=== PATIENT | male | born 1965 | race Caucasian/White ===

== ENCOUNTER 2016-10-22 14:03 | Inpatient (IN) | payer OTHER ==
[~2016-10-22] VITALS: Ht 180.3 cm; Wt 104.8 kg
[~2016-10-22 14:03] MED LIST: AMBI10TA OR; FOLI1TAB OR; LISI5TAB OR; NICO21DI4 TD; OXAZ30CA OR; PAXI40TA OR; THERGRAN; THIA100T OR; TRAZ50TA OR; XANA0.5T OR; ZOLO50TA OR
[2016-10-22] MEDS ORDERED: AMBI10TA PO (14:16)
[2016-10-22] MEDS ORDERED: PRO AIR (14:28)
[2016-10-22] MEDS ORDERED: OLME20TA2 PO (14:28)
[2016-10-22 15:09] LABS: MEAN CORPUSCULAR HGB CONC 33.8 g/dl (32.0-36.5); MEAN CORPUSCULAR VOLUME 100.7 fl (80.0-96.0); RED CELL DISTRIBUTION WIDTH 13.9 % (11.5-14.5); WHITE BLOOD COUNT 8.8 K/mm3 (4.0-10.0)
[2016-10-22 15:29] LABS: METHADONE URINE NEGATIVE (NEGATIVE)
[2016-10-22 15:42] LABS: ALBUMIN 3.4 GM/DL (3.2-5.2); ALBUMIN/GLOBULIN RATIO 0.94 (1.00-1.93); ALKALINE PHOSPHATASE 135 U/L (45-117); ALT/SGPT 144 U/L (12-78); ANION GAP 12 MEQ/L (8-16); AST/SGOT 205 U/L (15-37); BILIRUBIN,DIRECT 0.2 MG/DL (0.0-0.2); BILIRUBIN,TOTAL 0.5 MG/DL (0.2-1.0); BLOOD UREA NITROGEN 6 MG/DL (7-18); CALCIUM LEVEL 8.7 MG/DL (8.5-10.1); CARBON DIOXIDE LEVEL 24 MEQ/L (21-32); CHLORIDE LEVEL 102 MEQ/L (98-107); CREATININE FOR GFR 0.91 MG/DL (0.70-1.30); GLOMERULAR FILTRATION RATE > 60.0 (>56); GLUCOSE, FASTING 128 MG/DL (70-105); POTASSIUM SERUM 3.6 MEQ/L (3.5-5.1); SODIUM LEVEL 138 MEQ/L (136-145)
[2016-10-22] MEDS ORDERED: ALBU17IN INH (17:23)
[2016-10-22 18:10] VITALS: BP 138/84
[2016-10-22] MEDS ORDERED: MOM 30ML SUSPENSION UDC PO PRN (19:15)
[2016-10-22] MEDS ORDERED: MAALOX 30 ML SUSP *UDC PO PRN (19:15)
[2016-10-22 21:00] VITALS: BP 130/82
[2016-10-22] MEDS: THIAMINE 100 MG TAB PO SCH (23:10)
[2016-10-22] MEDS: zolPIDEM TARTRATE 10MG TAB PO SCH (23:10)
[2016-10-23 07:17] VITALS: BP 156/96
[2016-10-23 09:34] VITALS: BP 142/95
[2016-10-23] MEDS: OLMESARTAN MEDOXOMIL 20 MG TAB (BENICAR) PO SCH (09:34)
[2016-10-23] MEDS: MULTIVITAMINS/MINERALS THERAP 1 TAB PO SCH (09:34)
[2016-10-23] MEDS: THIAMINE 100 MG TAB PO SCH ×2 (09:34→22:17)
[2016-10-23] MEDS: FOLIC ACID 1 MG TAB PO SCH (09:34)
[2016-10-23] MEDS: NICOTINE 21MG/24HR 1 EA TRANSDERMAL TD SCH (09:35)
--- NOTE | 2016-10-23 11:08 | HPEPDOC ---
[facility] History & Physical History and Physical DATE OF ADMISSION: Oct 22, 2016 at 16:45 CHIEF COMPLAINT: "I've been drinking more for the past month and was having thoughts about suicide." HISTORY OF THE PRESENT ILLNESS: Patient is a 51-year-old male, who states he presented to the emergency room after consuming alcohol and experiencing suicidal ideation with a plan to drive vehicle into a truck or shoot self. Patient indicates he did not possess intent to harm self because he doesn't want to hurt his family. Patient has had 2 prior psychiatric hospitalizations, last admission occurred in 2010 at which time patient was also treated for alcohol abuse, depression, and suicidal ideation. Patient states he was sober for a year, then gradually began drinking again after daughter left for college , notes he has been drinking fairly regularly for the past year, adds for the past month he has been consuming alcohol excessively with increased use over the past week. Patient indicates he has been experiencing the following stressors: Recently receiving second DUI, has been suspended from his job without pay, financial strain, fear of losing house, car, and other possessions. Patient notes over the past week he began experiencing an increase in the following symptoms: Suicidal ideation, depression, anxiety, alcohol abuse , erratic appetite, helplessness and hopelessness, decreased concentration, erratic sleep. Patient rates current anxiety level of 7/10, depression 7/10, denies current suicidal or homicidal ideation, denies audiovisual hallucinations , denies urge to engage in self-injurious behavior. Patient denies history of attempting suicide and notes, "my thoughts were scaring me because I don't want to leave my family." Patient denies history of discomfort in social settings, denies panic attacks but endorses periods of anxiety with racing thoughts, denies impulse control or compulsive behavior challenges, denies history of agitation or unsanctioned aggression. Patient endorses having weapons in the home including rifles and shotguns. Patient denies symptoms of reexperiencing and avoidance, and endorses hypervigilance. Patient denies history of hypomania or teresa symptoms, described appetite as reduced but states he is gained weight over the course past year. Patient reports history of sleep challenges including both latency and maintenance, indicates he sleeps approximately 4-5 hours per night and has been prescribed Ambien for over a year by an outpatient provider which she takes nightly. I stop completed which indicated patient should have a 2 week supply of Ambien left When blog writer inquires, patient indicates he has been taking more than prescribed and combining Ambien with alcohol. Patient denies symptoms of craving or withdrawal. Patient informs blog writer that he has a court date today related to his second DWI, states he has contacted his attorney law clerk to let the court know he is in the hospital. 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 PSYCHIATRIC REVIEW OF SYSTEMS: Affective: Cooperative, generally pleasant, anxious related to court, potential loss of employment, financial strain Anxiety: Endorses Trauma: Denies Psychosis: Denies Personally: Is engageable, appears generally forthright, cooperative PAST PSYCHIATRIC HISTORY: Prior Psychiatric Disorder: Depression, anxiety, alcohol abuse Outpatient Treatment: [facility] 2010 Suicidal/Self injurious: History of ideation, denies history of suicide attempt , denies SIB Psychotropic Medication History: Serax, trazodone, Vistaril, Librium, Ativan, Ambien, Zoloft, Paxil ALLERGIES: Please see below. 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 Significant other currently resides with patient Economic: Reports notable financial strain related to being suspended without pay from air intelligence officer job Supports: Feels he has adequate support system Abuse/trauma: Denies SUBSTANCE ABUSE HISTORY: Smokes one pack of cigarettes per day. Patient states he has been consuming 1/2 gallon of vodka per day for past 2 weeks, before that he was consuming 1/2 gallon per week approximately the last year, notes he first began consuming alcohol age 18, last consuming 2 drinks yesterday morning. Patient indicates he attended [facility] in 2010, was sober for a year after treatment, then began consuming alcohol again at progressively increased rates. Patient reports history of marijuana and cocaine use recreationally, denies history of other substance use or abuse. PAST MEDICAL/SURGICAL HISTORY: Hypertension, asthma, hyperlipidemia, some hearing loss. Patient denies history of head injury or seizure. Labs on admission indicated elevated MCH, MCV, AST, ALT, glucose, and alkaline phosphatase, and low BUN and AGR. UDS at time of admission indicated ethyl alcohol elevated at 0.047 VITAL SIGNS: B/P 142/95, P 95, R 18, T 98.7. MENTAL STATUS EXAMINATION: General appearance: Patient is a 51-year-old male who is cooperative, engageable , makes fair eye contact, displays adequate personal hygiene, is dressed in hospital clothing, ambulates with steady gait, appears stated age. Speech: Of normal rate, rhythm, volume, coherent, spontaneous. Thought processes: Linear, logical, goal-directed. Thought content: Rational, logical. Abstract reasoning and computation: Requires further evaluation. Description of associations: Intact. Description of abnormal or psychotic thoughts: Patient denies suicidal or homicidal ideation, denies auditory or visual hallucinations, does not appear to be responding to internal stimuli, does not endorse bizarre or paranoid ideation, does not appear preoccupied with violence obsessions. Judgment: Poor. Insight: Poor, verbalizes need for treatment. Orientation: A and O 3. Recent and remote memory: Appears intact. Attention span and concentration: Within normal limits. Fund of knowledge: Adequate. Mood: "Okay, I'm worried about losing everything from drinking and driving like a dumb ass." Affect: Blunted, congruent with mood. DIAGNOSES: Major depressive disorder, recurrent, moderate, alcohol use disorder , polysubstance use disorder, adjustment disorder, rule out substance-induced mood disorder ASSESSMENT: Patient has been isolating to room, resting in bed, is engageable and cooperative. Patient states he has taken Zoloft in the past which he feels worsened his symptoms of depression, has also taken Paxil which he feels improved his mood and reduce symptoms of anxiety, is requesting medication restart. Patient is currently on CIWA protocol, denies symptoms of craving or withdrawal, and has been advised to alert nursing if he begins to experience symptoms of withdrawal. Patient is aware that once he is stabilized on CIWA protocol, Ambien taper will be initiated in preparation for patient to participate in substance abuse treatment. Patient denies current suicidal or homicidal ideation and verbalizes awareness of how to access supportive services on the unit if needed. Will monitor patient's response to medications, response to withdrawal protocol, and will monitor for medication side effects. Will also evaluate patient's safety, resolution of suicidal ideation, and discharge readiness. At time of discharge patient states he is considering participating in inpatient alcohol treatment, however, indicates he will go through his union at work for referral as they reportedly dictate which facility he may attend. Patient notes if he is unable to attend inpatient treatment he will return home where he lives with his significant other. Patient verbalizes awareness that he will need to participate in substance abuse treatment, understands that inpatient is being recommended, notes he has also participated in [facility] in the past and may prefer to return there for psychotherapy, medication management, and substance abuse treatment. PROBLEM LIST: Suicidal ideation Depression Anxiety Substance abuse Ineffective coping Poor impulse control Financial strain Work tension INITIAL TREATMENT PLAN: 1. Patient was admitted on a 9 2. Complete history was obtained. 3. With patients permission, family will be contacted and database will be expanded. 4. Patients medication regimen will be reviewed and changed accordingly. 5. Patient will be provided with protected environment. 6. Patient will be treated with individual, group, and milieu therapies. 7. Patient will receive supportive psych-education. 8. Discharge planning will commence immediately. 9. Outpatient follow-up treatment will be strongly recommended. 10. The initial treatment plan will focus initially on: * Depression. * Risk for suicide. * Substance abuse - [facility] protocol ESTIMATED LENGTH OF STAY: 5-7 DAYS. TIME SPENT COUNSELING AND COORDINATING INITIAL CARE: 50 minutes. Laboratory Data 24H Labs Laboratory Tests 2 10/22/16 14:54: Hepatitis A IgM Antibody NEGATIVE, Hepatitis B Core IgM Antibody NEGATIVE, Hepatitis B Surface Antigen NEGATIVE, Hepatitis C Antibody Index 0.2 10/22/16 15:01: Acetaminophen Level < 2.0L, Aspartate Amino Transf (AST/SGOT) 205H, Alanine Aminotransferase (ALT/SGPT) 144H, Alkaline Phosphatase 135H, Total Bilirubin 0.5 , Direct Bilirubin 0.2, Albumin 3.4, Albumin/Globulin Ratio 0.94L, Anion Gap 12 , Calcium Level 8.7, Ethyl Alcohol Level 0.047H, Glomerular Filtration Rate > 60.0, Salicylates Level 3.2L, Thyroid Stimulating Hormone (TSH) 2.860, Total Protein 7.0, Urine Amphetamines Screen NEGATIVE, Urine Benzodiazepines Screen NEGATIVE, Urine Opiates Screen NEGATIVE, Urine Barbiturates Screen NEGATIVE, Urine Cannabinoids Screen NEGATIVE, Urine Cocaine Metabolite Screen NEGATIVE, Urine Methadone Screen NEGATIVE, Urine Phencyclidine Screen NEGATIVE CBC/BMP Laboratory Tests 10/22/16 15:01 Red Blood Count 4.53, Mean Corpuscular Volume 100.7 H, Mean Corpuscular Hemoglobin 34.0 H, Mean Corpuscular Hemoglobin Concent 33.8, Red Cell Distribution Width 13.9 Medications Scheduled Olmesartan Medoxomil (Olmesartan Medoxomil) 20 Mg Tab, 20 MG PO DAILY, (Reported ) Zolpidem Tartrate (Ambien) 10 Mg Tab, 10 MG PO QHS, (Reported) PATIENT HAS BEEN ALL OUT OF THIS MEDICATION SINCE 10/16/16 Scheduled PRN Albuterol Sulfate (Ventolin Hfa) 200 Puff/8 Gm Aers, 2 PUFF INH Q4H PRN for SHORTNESS OF BREATH, (Reported) Allergies Coded Allergies: No Known Drug Allergy (Verified Allergy, Unknown, 10/07/12) Provider Note ADDENDUM TO THIS NOTE: This patient's medical need for admission to the hospital is approved by Dr Hudson, who is not assuming care of the patient during the hospital stay. The patient's initial evaluation, including the treatment plan and the patient's care in the hospital is assumed by Jocelynn Centeno NP. Jocelynn Centeno Oct 23, 2016 11:08 Cinthya Weir Oct 30, 2016 19:22
--- NOTE | 2016-10-23 11:42 | HPEPDOC ---
Medical History and Physical Date of Admission Oct 22, 2016 at 16:45 History and Physical PCP: Dr Childress ATTENDING: Dr. Sean Randolph HPI: 51yoM admitted to [facility] for Unspecified depressive disorder, being medically examined today. Patient states he is eating and drinking. He had some abdominal discomfort yesterday but today it is better. Last evening he had some shortness of breath, he uses albuterol. Today he reports no shortness of breath or wheezing. This morning he had some back pain however currently he states he does not have any back discomfort or flank pain. Denies any epigastric discomfort. Denies any fevers, chills, weakness, fatigue, POLK, CP, SOB, cough, palpitations, abdominal pain, N/V/D or changes in bowel or bladder habits. PMHx: Insomnia Hypertension Asthma Hyperlipidemia. Not on meds per Pt related to side effects. 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 Illicit Drugs: History of marijuana, cocaine rarely IV Drug Use: Denies Tattoos done unprofessionally: Denies FAMHX: Mother: , CAD Father: , Alzheimer's Siblings: 2 brothers, 2 sisters Alive, well Children: Alive, well Unexpected deaths due to medical reasons: None. ROS: As noted in HPI, otherwise 11pt ROS of systems reviewed and unremarkable. PE: GEN: 51 yoM, appears stated age. Well-nourished, well developed. No acute distress. Alert and oriented x 3. Pleasant, interactive. HEENT: Normocephalic, atraumatic. Pupils are equal, round, and reactive to light. Extraocular movements are intact. No nystagmus appreciated. Sclera are nonicteric. Conjunctiva without injection. Nose midline. Nasal turbinates without bogginess. EACs both patent BL. TMs both visualized and lund with good cone of light, no bulging or erythema. No facial asymmetry. Moist mucous membranes. Dentition fair. Pharynx pink and moist, no cobblestoning. Neck supple , trachea midline. No lymphadenopathy or thyromegaly appreciated. CHEST: Regular rate and rhythm, +S1, +S2 LUNGS: Clear to auscultation bilaterally. No wheezes, rales, or rhonchi. Breathing appears symmetric and easy. Patient is speaking in full sentences. No accessory muscle use. ABD: Protuberant, Round, soft, non-tender, no epigastric tenderness, non- distended. +Bowel sounds throughout. No rebound or guarding. No costovertebral angle tenderness. EXT: Pulses 2+ bilaterally dorsalis pedis and radial. No lower extremity edema appreciated. SKIN: [place], dry, warm. Capillary refill <2sec. No rashes. NEURO: Alert and oriented x 3. Cranial nerves III-XII are intact. No focal deficits appreciated. EKG: Pending. A&P: 51yoM admitted to [facility] for Unspecified depressive disorder 1. Psych. Plan per Psychiatry. Obtain baseline EKG to assure the safety of psychiatric medications as they can prolong the QT interval. 2. Nicotine dependence. Patch available. 3. Asthma. Continue albuterol 2 puffs every 4 hours as needed. 4. Follow up with PCP on discharge. 5. Substance use. Withdrawal per psychiatry. Continue with MVI, Thiamine, and Folic Acid supplementation. 6. Hypertension. Continue olmesartan 20 mg by mouth daily. Monitor blood pressure. 7. Elevated LFTs. Hepatitis profile pending. Recheck CMP today. Add amylase. Consider liver ultrasound pending results. Recheck labs in a.m. 8. Staff member Ed present throughout exam. Vital Signs Vital Signs Date Time Temp Pulse Resp B/P Pulse Ox O2 Delivery O2 Flow Rate FiO2 10/23/16 09:34 142/95 10/23/16 09:34 54 16 10/23/16 07:17 98.7 10/22/16 18:10 Room Air 10/22/16 17:35 95 Laboratory Data Labs 24H Laboratory Tests 2 10/22/16 14:54: Hepatitis A IgM Antibody NEGATIVE, Hepatitis B Core IgM Antibody NEGATIVE, Hepatitis B Surface Antigen NEGATIVE, Hepatitis C Antibody Index 0.2 10/22/16 15:01: Acetaminophen Level < 2.0L, Aspartate Amino Transf (AST/SGOT) 205H, Alanine Aminotransferase (ALT/SGPT) 144H, Alkaline Phosphatase 135H, Total Bilirubin 0.5 , Direct Bilirubin 0.2, Albumin 3.4, Albumin/Globulin Ratio 0.94L, Anion Gap 12 , Calcium Level 8.7, Ethyl Alcohol Level 0.047H, Glomerular Filtration Rate > 60.0, Salicylates Level 3.2L, Thyroid Stimulating Hormone (TSH) 2.860, Total Protein 7.0, Urine Amphetamines Screen NEGATIVE, Urine Benzodiazepines Screen NEGATIVE, Urine Opiates Screen NEGATIVE, Urine Barbiturates Screen NEGATIVE, Urine Cannabinoids Screen NEGATIVE, Urine Cocaine Metabolite Screen NEGATIVE, Urine Methadone Screen NEGATIVE, Urine Phencyclidine Screen NEGATIVE CBC/BMP Laboratory Tests 10/22/16 15:01 Red Blood Count 4.53, Mean Corpuscular Volume 100.7 H, Mean Corpuscular Hemoglobin 34.0 H, Mean Corpuscular Hemoglobin Concent 33.8, Red Cell Distribution Width 13.9 Home Medications Scheduled Olmesartan Medoxomil (Olmesartan Medoxomil) 20 Mg Tab 20 MG PO DAILY Zolpidem Tartrate (Ambien) 10 Mg Tab 10 MG PO QHS PATIENT HAS BEEN ALL OUT OF THIS MEDICATION SINCE 10/16/16 Scheduled PRN Albuterol Sulfate (Ventolin Hfa) 200 Puff/8 Gm Aers 2 PUFF INH Q4H PRN PRN SHORTNESS OF BREATH Allergies Coded Allergies: No Known Drug Allergy (Verified Allergy, Unknown, 10/07/12) Kalee Baker Oct 23, 2016 11:42
[2016-10-23 13:00] VITALS: BP 142/95
[2016-10-23 13:37] LABS: ALBUMIN 3.4 GM/DL (3.2-5.2); ALBUMIN/GLOBULIN RATIO 1.06 (1.00-1.93); ALKALINE PHOSPHATASE 136 U/L (45-117); ALT/SGPT 130 U/L (12-78); AMYLASE 41 U/L (25-115); ANION GAP 7 MEQ/L (8-16); AST/SGOT 164 U/L (15-37); BLOOD UREA NITROGEN 8 MG/DL (7-18); CARBON DIOXIDE LEVEL 30 MEQ/L (21-32); CHLORIDE LEVEL 103 MEQ/L (98-107); CREATININE FOR GFR 1.05 MG/DL (0.70-1.30); GLOMERULAR FILTRATION RATE > 60.0 (>56); GLUCOSE, FASTING 112 MG/DL (70-105); POTASSIUM SERUM 4.4 MEQ/L (3.5-5.1); SODIUM LEVEL 140 MEQ/L (136-145); TOTAL PROTEIN 6.6 GM/DL (6.4-8.2)
[2016-10-23] MEDS: LORazepam 2 MG TAB PO PRN ×2 (13:44→21:08)
[2016-10-23 14:00] VITALS: BP 139/87
[2016-10-23] MEDS ORDERED: CLOTRIMAZOLE 1% TOPICAL CREAM 30GM TOP SCH (17:00)
[2016-10-23] MEDS ORDERED: SODIUM CHLORIDE NASAL 0.65% SPRAY BTL (OCEAN) SCH (17:00)
--- NOTE | 2016-10-23 17:20 | ECGEPIP ---
Stationary ECG Study [facility] Test Date: 2016-10-23 Pat Name: MONICA LANDERS Department: Room: [place] [address] Gender: M Communications Representative: ANDRIA : 1965 Requested By: Kalee Baker Order Number: [id number] Reading MD: Sean Randolph Measurements Intervals [place] Rate: 91 P: 28 VT: 168 QRS: 29 QRSD: 93 T: 47 QT: 353 QTc: 436 Interpretive Statements SINUS RHYTHM WITH SINUS ARRHYTHMIA Comparison tracing not on file Electronically Signed On 10-23-2016 17:18:44 EDT by Sean Randolph
[2016-10-23 18:00] VITALS: BP 153/93
[2016-10-23 21:00] VITALS: BP 153/93
[2016-10-23] MEDS: zolPIDEM TARTRATE 10MG TAB PO SCH (22:17)
[2016-10-24] VITALS (7 sets, daily range): BP systolic 120–146; BP diastolic 82–102
[2016-10-24 06:39] LABS: MEAN CORPUSCULAR HGB CONC 32.4 g/dl (32.0-36.5); MEAN CORPUSCULAR VOLUME 101.8 fl (80.0-96.0); RED CELL DISTRIBUTION WIDTH 13.6 % (11.5-14.5); WHITE BLOOD COUNT 7.9 K/mm3 (4.0-10.0)
[2016-10-24 07:09] LABS: ALBUMIN 3.1 GM/DL (3.2-5.2); ALBUMIN/GLOBULIN RATIO 0.91 (1.00-1.93); ALKALINE PHOSPHATASE 130 U/L (45-117); ALT/SGPT 126 U/L (12-78); ANION GAP 5 MEQ/L (8-16); AST/SGOT 162 U/L (15-37); BILIRUBIN,TOTAL 1.2 MG/DL (0.2-1.0); BLOOD UREA NITROGEN 8 MG/DL (7-18); CALCIUM LEVEL 8.6 MG/DL (8.5-10.1); CARBON DIOXIDE LEVEL 32 MEQ/L (21-32); CHLORIDE LEVEL 104 MEQ/L (98-107); CREATININE FOR GFR 0.97 MG/DL (0.70-1.30); GLOMERULAR FILTRATION RATE > 60.0 (>56); GLUCOSE, FASTING 111 MG/DL (70-105); POTASSIUM SERUM 4.2 MEQ/L (3.5-5.1); SODIUM LEVEL 141 MEQ/L (136-145); TOTAL PROTEIN 6.5 GM/DL (6.4-8.2)
[2016-10-24] MEDS: MULTIVITAMINS/MINERALS THERAP 1 TAB PO SCH (08:41)
[2016-10-24] MEDS: FOLIC ACID 1 MG TAB PO SCH (08:41)
[2016-10-24] MEDS: OLMESARTAN MEDOXOMIL 20 MG TAB (BENICAR) PO SCH (08:42)
[2016-10-24] MEDS: NICOTINE 21MG/24HR 1 EA TRANSDERMAL TD SCH (08:42)
[2016-10-24] MEDS ORDERED: PARoxetine 12.5 MG **CR** TAB PO SCH (09:00)
[2016-10-24] MEDS: THIAMINE 100 MG TAB PO SCH ×2 (10:38→23:10)
[2016-10-24] MEDS: LORazepam 2 MG TAB PO PRN (11:25)
--- NOTE | 2016-10-24 17:12 | IPNPDOC ---
[facility] Progress Note Progress Note DATE OF SERVICE: 10/24/16 HISTORY: 51 year old male who was admitted to the [facility] because he presented to the Emergency Room stating he had suicidal ideation and felt very depressed. He states he has had a substance abuse history (alcohol) that has caused him several problems and tribulations. He got a DUI recently and for this reason he has suspended from his job and he will be going to court for this reason. He is afraid of not being able to pay his mortgage, his debt. He says that he was living with someone but that she also has an alcohol problem. He states his family is very supportive and that he hopes to overcome this situation, although he says there are days when he wakes up and he wishes he wouldn't or he wishes that he could keep on sleeping forever. VITAL SIGNS: See below. NEW TEST RESULTS: None. CURRENT MEDICATIONS: See below. MENTAL STATUS EXAMINATION: Patient is a 51-year old male, who is alert, cooperative with interview, with good eye contact, pleasant. Speech: Is normal. Language skills are fair. Thought processes including: Linear , coherent Thought content: Negative for homicidal ideation, delusional thoughts or altered perceptions. Positive for passive suicidal ideation. Abstract reasoning, and computation: Good. Description of associations: No loosening of associations. Description of abnormal or psychotic thoughts: Not present Judgment: Improving. Insight: Improving. Orientation: Oriented 3. Recent and remote memory: Fair. Attention span and concentration: Fair. Language: Normal. Fund of knowledge: Good. Mood: "I feel very anxious and depressed, and to tell you the truth, yes, many times I wake up wishing not to wake up". Affect: Sad, depressed. DIAGNOSES: 1. Major depressive disorder with suicidal ideation. 2. Rule out substance-induced mood disorder. 3. Alcohol abuse. ASSESSMENT: Patient is insightful about his situation and he is beginning to realize all the problems that he's gotten into because of his alcohol abuse. I have increased the dose of Paxil to 25 mg by mouth daily because he is very anxious and depressed. He needs a lot of support, psychotherapy and continued on medications, but he also needs his family support. He needs further treatment at the inpatient mental health unit MANAGEMENT PLAN: Continued hospitalization, psychotherapy, medications. TIME SPENT: 20 minutes. Vital Signs Vital Signs Date Time Temp Pulse Resp B/P Pulse Ox O2 Delivery O2 Flow Rate FiO2 10/24/16 14:00 98.8 72 18 120/88 10/22/16 18:10 Room Air 10/22/16 17:35 95 Laboratory Data 24H Labs Laboratory Tests 2 10/24/16 06:27: Blood Urea Nitrogen 8, Creatinine 0.97, Sodium Level 141, Potassium Level 4.2, Chloride Level 104, Carbon Dioxide Level 32, Calcium Level 8.6, Aspartate Amino Transf (AST/SGOT) 162H, Alanine Aminotransferase (ALT/SGPT) 126H, Alkaline Phosphatase 130H, Total Bilirubin 1.2H, Total Protein 6.5, Albumin 3.1L, Albumin /Globulin Ratio 0.91L, Anion Gap 5L, Glomerular Filtration Rate > 60.0 CBC/BMP Laboratory Tests 10/24/16 06:27 Calcium Level 8.6, Aspartate Amino Transf (AST/SGOT) 162 H, Alanine Aminotransferase (ALT/SGPT) 126 H, Alkaline Phosphatase 130 H, Total Bilirubin 1.2 H, Total Protein 6.5, Albumin 3.1 L, Red Blood Count 4.37, Mean Corpuscular Volume 101.8 H, Mean Corpuscular Hemoglobin 33.0, Mean Corpuscular Hemoglobin Concent 32.4, Red Cell Distribution Width 13.6 Current Medications Current Medications Al Hydrox/Mg Hydrox/Simethicone (Mylanta) 30 ml Q4HP PRN PO HEARTBURN/ INDIGESTION; Start 10/22/16 at 19:15; Stop 11/21/16 at 19:14 Albuterol Sulfate (Proventil, Ventolin Hfa) 2 puff Q4HP PRN INH SHORTNESS OF BREATH; Start 10/22/16 at 19:15; Stop 11/21/16 at 19:14 Clotrimazole (Lotrimin) apply to face daily as needed DAILYPRN TOP ; Start 10/23 at 17:00; Stop 10/23/16 at 17:02; Status DC Clotrimazole (Lotrimin) apply to face daily as needed DAILYPRN PRN TOP REDNESS/ IRRITATION; Start 10/23/16 at 17:00; Stop 11/22/16 at 16:59 Folic Acid (Folic Acid) 1 mg DAILY PO Last administered on 10/24/16t 08:41; Start 10/23/16 at 09:00; Stop 11/22/16 at 08:59 Home Med (Med Rec Complete!) ASDIRECTED XX ; Start 10/22/16 at 17:30; Stop at 17:30; Status DC Ibuprofen (Advil) 400 mg Q6HP PRN PO PAIN; Start 10/22/16 at 19:15; Stop at 19:14 Lorazepam (Ativan) 2 mg ASDIRECTED PRN PO SEE PROTOCOL Last administered on 11:25; Start 10/22/16 at 19:15; Stop 10/29/16 at 19:14 Magnesium Hydroxide (Milk Of Magnesia) 30 ml DAILYPRN PRN PO CONSTIPATION; Start 10/22/16 at 19:15; Stop 11/21/16 at 19:14 Multivitamins (Theragram-M) 1 tab DAILY PO Last administered on 10/24/16 08:41 ; Start 10/23/16 at 09:00; Stop 11/22/16 at 08:59 Nicotine (Nicoderm Cq 21mg) 1 patch DAILY TD Last administered on 10/24/16 08: 42; Start 10/23/16 at 09:00; Stop 11/22/16 at 08:59 Olmesartan (Benicar) 20 mg DAILY PO Last administered on 10/24/16 08:42; Start 10/23/16 at 09:00; Stop 11/22/16 at 08:59 Paroxetine HCl (PAXil CR) 12.5 mg QAM PO Last administered on 10/24/16 08:41; Start 10/24/16 at 09:00; Stop 11/23/16 at 08:59 Sodium Chloride ([place] Nasal [place]) 2 spray BIDP NA ; Start 10/23/16 at 17:00; Stop 10/23/16 at 17:02; Status DC Sodium Chloride ([place] Nasal [place]) 2 spray BIDP PRN NA NASAL CONGESTION; Start 10/23/16 at 17:00; Stop 11/22/16 at 16:59 Thiamine HCl (Thiamine HCl) 100 mg BID PO Last administered on 10/24/16 10:38 ; Start 10/22/16 at 21:00; Stop 10/25/16 at 09:01 Zolpidem Tartrate (Ambien) 10 mg QHS PO Last administered on 10/23/16t 22:17; Start 10/22/16 at 21:00; Stop 10/29/16 at 20:59 Allergies Coded Allergies: No Known Drug Allergy (Verified Allergy, Unknown, 10/07/12) SHEILA ROJO MD Oct 24, 2016 17:12
[2016-10-24] MEDS: IBUPROFEN 400 MG TAB PO PRN (20:22)
[2016-10-24] MEDS: zolPIDEM TARTRATE 10MG TAB PO SCH (23:10)
[2016-10-25] MEDS: SODIUM CHLORIDE NASAL 0.65% SPRAY BTL (OCEAN) PRN (04:06)
[2016-10-25] MEDS: IBUPROFEN 400 MG TAB PO PRN (04:07)
[2016-10-25] MEDS ORDERED: hydrOXYzine 25 MG TAB PO SCH (06:30)
[2016-10-25] MEDS ORDERED: cloNIDine 0.1 MG TAB PO ONE (06:30)
[2016-10-25] MEDS ORDERED: hydrOXYzine 25 MG TAB PO PRN (06:45)
[2016-10-25 06:46] VITALS: BP 150/110
[2016-10-25 08:40] VITALS: BP 129/69
[2016-10-25] MEDS: PARoxetine 25 MG CR TAB (PAXIL CR) PO SCH (08:40)
[2016-10-25] MEDS: MULTIVITAMINS/MINERALS THERAP 1 TAB PO SCH (08:40)
[2016-10-25] MEDS: THIAMINE 100 MG TAB PO SCH (08:41)
[2016-10-25] MEDS: OLMESARTAN MEDOXOMIL 20 MG TAB (BENICAR) PO SCH (08:41)
[2016-10-25] MEDS: NICOTINE 21MG/24HR 1 EA TRANSDERMAL TD SCH (08:42)
[2016-10-25] MEDS: FOLIC ACID 1 MG TAB PO SCH (08:43)
--- NOTE | 2016-10-25 09:19 | IPNPDOC ---
[facility] Progress Note Progress Note DATE OF SERVICE: 10/25/16 HISTORY: Evaluated 51 year old male with history of Major Depressive disorder, substance abuse ( alcohol), R/O substance induced mood disorder ho was admitted for having suicidal thoughts and being severely depressed. He states he is still feeling depressed and very anxious about his legal and financial situation , because he received a DUI recently, he has been suspended from work and he doesn't know if he is going to be fired. VITAL SIGNS: See below. NEW TEST RESULTS: none CURRENT MEDICATIONS: See below. MENTAL STATUS EXAMINATION: Patient is a 51-year old male, who is alert, cooperative, with good eye contact and good rapport. Speech: Is normal. Language skills are good Thought processes including: Linear, coherent. Thought content: negative for psychosis, but he has passive, not active suicidal thoughts. he doesn't have homicidal ideation. Abstract reasoning, and computation: Fair. Description of associations: No llosening of associations. Description of abnormal or psychotic thoughts: No psychotic thoughts are present. Judgment: Improving. Insight: Improving. Orientation: Oriented x 3. Recent and remote memory: Intact. Attention span and concentration: Good. Language: Normal. Fund of knowledge: Full. Mood: Depressed. Affect: sad, anxious DIAGNOSES: 1. Major Depressive disorder with SI. 2. Substance abuse ( alcohol). 3. Rule out substance induced mood disorder. ASSESSMENT:Patient is very anxious and depressed about his current situation. This morning he was reported to have high blood pressure, so, clonidine was prescribed, a one time dose of 0.1 mgs. and he received a dose of Ativan. Possibly his high blood pressure was secondary to his anxiety but it also could be related to the fact that he could still be going through withdrawals. will need to monitor closely. MANAGEMENT PLAN: continue current treatment, contact family and arrange outpatient follow up for depressive d/o and for alcohol abuse. TIME SPENT: 15 minutes. Vital Signs Vital Signs Date Time Temp Pulse Resp B/P Pulse Ox O2 Delivery O2 Flow Rate FiO2 10/25/16 08:41 129/69 10/25/16 08:40 110 18 10/25/16 06:46 99.0 10/22/16 18:10 Room Air 10/22/16 17:35 95 Current Medications Current Medications Al Hydrox/Mg Hydrox/Simethicone (Mylanta) 30 ml Q4HP PRN PO HEARTBURN/ INDIGESTION; Start 10/22/16 at 19:15; Stop 11/21/16 at 19:14 Albuterol Sulfate (Proventil, Ventolin Hfa) 2 puff Q4HP PRN INH SHORTNESS OF BREATH; Start 10/22/16 at 19:15; Stop 11/21/16 at 19:14 Clotrimazole (Lotrimin) apply to face daily as needed DAILYPRN TOP ; Start 10/23 at 17:00; Stop 10/23/16 at 17:02; Status DC Clotrimazole (Lotrimin) apply to face daily as needed DAILYPRN PRN TOP REDNESS/ IRRITATION; Start 10/23/16 at 17:00; Stop 11/22/16 at 16:59 Folic Acid (Folic Acid) 1 mg DAILY PO Last administered on 10/25/16 08:43; Start 10/23/16 at 09:00; Stop 11/22/16 at 08:59 Home Med (Med Rec Complete!) ASDIRECTED XX ; Start 10/22/16 at 17:30; Stop at 17:30; Status DC Hydroxyzine HCl (Atarax) 25 mg BIDP PO ; Start 10/25/16 at 06:30; Stop 10/25/16 at 06:40; Status DC Hydroxyzine HCl (Atarax) 25 mg BIDP PRN PO ANXIETY/AGITATION; Start 10/25/16 at 06:45; Stop 11/24/16 at 06:44 Ibuprofen (Advil) 400 mg Q6HP PRN PO PAIN Last administered on 10/25/16 04:07 ; Start 10/22/16 at 19:15; Stop 11/21/16 at 19:14 Lorazepam (Ativan) 2 mg ASDIRECTED PRN PO SEE PROTOCOL Last administered on 11:25; Start 10/22/16 at 19:15; Stop 10/24/16 at 16:14; Status DC Magnesium Hydroxide (Milk Of Magnesia) 30 ml DAILYPRN PRN PO CONSTIPATION; Start 10/22/16 at 19:15; Stop 11/21/16 at 19:14 Multivitamins (Theragram-M) 1 tab DAILY PO Last administered on 10/25/16 08:40 ; Start 10/23/16 at 09:00; Stop 11/22/16 at 08:59 Nicotine (Nicoderm Cq 21mg) 1 patch DAILY TD Last administered on 10/25/16 08: 42; Start 10/23/16 at 09:00; Stop 11/22/16 at 08:59 Olmesartan (Benicar) 20 mg DAILY PO Last administered on 10/25/16 08:41; Start 10/23/16 at 09:00; Stop 11/22/16 at 08:59 Paroxetine HCl (PAXil CR) 12.5 mg QAM PO Last administered on 10/24/16 08:41; Start 10/24/16 at 09:00; Stop 10/24/16 at 16:14; Status DC Paroxetine HCl (PAXil CR) 25 mg DAILY PO Last administered on 10/25/16 08:40; Start 10/25/16 at 09:00; Stop 11/24/16 at 08:59 Sodium Chloride ([place] Nasal [place]) 2 spray BIDP NA ; Start 10/23/16 at 17:00; Stop 10/23/16 at 17:02; Status DC Sodium Chloride ([place] Nasal [place]) 2 spray BIDP PRN NA NASAL CONGESTION Last administered on 10/25/16 04:06; Start 10/23/16 at 17:00; Stop 11/22/16 at 16:59 Thiamine HCl (Thiamine HCl) 100 mg BID PO Last administered on 10/25/16 08:41 ; Start 10/22/16 at 21:00; Stop 10/25/16 at 09:01; Status DC Zolpidem Tartrate (Ambien) 10 mg QHS PO Last administered on 10/24/16 23:10; Start 10/22/16 at 21:00; Stop 10/29/16 at 20:59 Allergies Coded Allergies: No Known Drug Allergy (Verified Allergy, Unknown, 10/07/12) SHEILA ROJO MD Oct 25, 2016 09:19
[2016-10-25] MEDS: ALBUTEROL 90 MCG/ACT 8GM HFA INHALER INH PRN (09:34)
[2016-10-25 11:42] VITALS: BP 136/86
[2016-10-25 11:59] VITALS: BP 129/69
[2016-10-25] MEDS: hydrOXYzine 25 MG TAB PO SCH ×2 (17:49→22:08)
[2016-10-25 18:00] VITALS: BP 119/76
[2016-10-25 21:00] VITALS: BP 126/80
[2016-10-25] MEDS: zolPIDEM TARTRATE 10MG TAB PO SCH (23:09)
[2016-10-26 06:26] VITALS: BP 146/108
--- NOTE | 2016-10-26 07:52 | REP ---
Clinical: Elevated liver function tests. Technique: Real time lund scale ultrasound examination using curved array transducer. Findings: The liver is enlarged measuring greater than 20 cm craniocaudal length and demonstrates diffuse fatty infiltration without focal hepatic lesion identified. Main portal vein is enlarged and measures 17 mm diameter. The gallbladder is normal and without gallstones, wall thickening, or pericholecystic fluid. No biliary ductal dilatation is appreciated and the common bile duct measures 3.8 mm diameter. Pancreas is incompletely evaluated due to interposed bowel gas and poor through transmission. The right kidney is normal in reniform shape without hydronephrosis and measures 10.2 x 6.4 x 4.8 cm. No ascites. Impression: Hepatomegaly and hepatosteatosis. Signed by Marcelo Chambers MD 10/26/2016 07:43 A
[2016-10-26] MEDS: NICOTINE 21MG/24HR 1 EA TRANSDERMAL TD SCH (08:08)
[2016-10-26] MEDS: MULTIVITAMINS/MINERALS THERAP 1 TAB PO SCH (08:08)
[2016-10-26] MEDS: hydrOXYzine 25 MG TAB PO SCH ×4 (08:08→21:50)
[2016-10-26] MEDS: PARoxetine 25 MG CR TAB (PAXIL CR) PO SCH (08:08)
[2016-10-26] MEDS: FOLIC ACID 1 MG TAB PO SCH (08:08)
[2016-10-26] MEDS: OLMESARTAN MEDOXOMIL 20 MG TAB (BENICAR) PO SCH (08:11)
[2016-10-26 09:47] LABS: ALBUMIN 3.1 GM/DL (3.2-5.2); ALBUMIN/GLOBULIN RATIO 0.94 (1.00-1.93); ALKALINE PHOSPHATASE 108 U/L (45-117); ALT/SGPT 124 U/L (12-78); ANION GAP 9 MEQ/L (8-16); AST/SGOT 124 U/L (15-37); BILIRUBIN,TOTAL 0.7 MG/DL (0.2-1.0); BLOOD UREA NITROGEN 10 MG/DL (7-18); CALCIUM LEVEL 8.5 MG/DL (8.5-10.1); CARBON DIOXIDE LEVEL 27 MEQ/L (21-32); CHLORIDE LEVEL 106 MEQ/L (98-107); CREATININE FOR GFR 1.08 MG/DL (0.70-1.30); GLOMERULAR FILTRATION RATE > 60.0 (>56); GLUCOSE, FASTING 135 MG/DL (70-105); POTASSIUM SERUM 4.1 MEQ/L (3.5-5.1); SODIUM LEVEL 142 MEQ/L (136-145); TOTAL PROTEIN 6.4 GM/DL (6.4-8.2)
[2016-10-26 11:28] VITALS: BP 141/88
[2016-10-26] MEDS: ALBUTEROL 90 MCG/ACT 8GM HFA INHALER INH PRN ×2 (17:01→21:51)
[2016-10-26] MEDS: SODIUM CHLORIDE NASAL 0.65% SPRAY BTL (OCEAN) PRN ×2 (17:02→21:52)
[2016-10-26 18:00] VITALS: BP 146/73
[2016-10-26] MEDS: IBUPROFEN 400 MG TAB PO PRN (19:36)
--- NOTE | 2016-10-26 19:52 | IPNPDOC ---
[facility] Progress Note Progress Note DATE OF SERVICE: 10/26/16 HISTORY: Patient is 51-year-old male who presented to the emergency room after consuming alcohol and experiencing suicidal ideation with plan to drive vehicle into a truck or shoot self. Patient indicates he found the weekend "frustrating , there is a lot of down time," notes unit population is "young and there is a lot of drama." Patient states those of the reasons he is been isolating to room , otherwise has been making attempts to attend unit programming. Patient relates current anxiety level of 7/10, depression 8/10, denies suicidal and homicidal ideations, denies audiovisual hallucinations, denies urge to engage in self-injurious behavior. Contrary to EMR, patient indicates he is not been sleeping well, reports improvement in energy level and concentration and focus, states appetite is stabilizing. Patient denies symptoms of craving or withdrawal , is aware he has PRN anxiolytic available to him, indicates some improvement since starting Paxil which was recently increased, denies medication side effects. Patient indicates he remains "worried about money, my job, and my life, " indicates he has not initiated contact with his contract attorney and does not know current status of DUI case. VITAL SIGNS: See below. NEW TEST RESULTS: Glucose elevated at 135, also elevated are AST, ALT, MCV, low are albumin and AGR PAST MEDICAL/SURGICAL HISTORY: Hypertension, asthma, hyperlipidemia, some hearing loss. Patient denies history of head injury or seizure. Labs on admission indicated elevated MCH, MCV, AST, ALT, glucose, and alkaline phosphatase, and low BUN and AGR. UDS at time of admission indicated ethyl alcohol elevated at 0.047 10/23/16 EKG SINUS RHYTHM WITH SINUS ARRHYTHMIA CURRENT MEDICATIONS: See below. MENTAL STATUS EXAMINATION: Patient is a 51-year old male, who is alert, cooperative, makes adequate eye contact, exhibits adequate personal hygiene, is dressed in hospital clothing, ambulates with steady gait, appears stated age Speech: Is normal, of normal rate, rhythm, volume, spontaneous, coherent Language skills are good Thought processes including: Linear, coherent. Thought content: Rational, logical Abstract reasoning, and computation: Appears within normal limits Description of associations: Intact Description of abnormal or psychotic thoughts: Patient denies suicidal or homicidal ideation, denies auditory or visual hallucinations, does not appear to be responding to internal stimuli, does not endorse bizarre or paranoid ideation, does not appear preoccupied with violence or obsessions Judgment: Limited Insight: Fair Orientation: Oriented x 3. Recent and remote memory: Intact. Attention span and concentration: Good. Language: Normal. Fund of knowledge: Adequate Mood: "I'm just worried about losing everything over this DWI." Patient appears anxious and depressed, no mood lability noted Affect: Constricted, tearful 1, congruent with mood DIAGNOSES: Major depressive disorder, recurrent moderate, alcohol use disorder, polysubstance use disorder, adjustment disorder, rule out substance-induced mood disorder ASSESSMENT: Patient appears to be adjusting to unit, remains isolative in room at times, but is more visible and has been participating in unit programming. Patient states she remains anxious and depressed regarding waiting to find out if he is going to have a job or if he will lose his home, car, and other resources. Patient has been placed on standing anxiolytic medication. Patient indicates current medication regimen is helpful and denies medication side effects, is aware that recommendation is being made for Ambien taper once patient is stabilized on antidepressant and sleep has improved. Patient denies suicidal and homicidal ideation and verbalizes awareness of how to access supportive services on the unit if needed. Will monitor patient's response to medications and for side effects, and will evaluate patient's safety, resolution of suicidal ideation, and discharge readiness. Patient indicates when prepared for discharge he would like to first go home, and then go to inpatient alcohol rehabilitation. 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 Patient states he is also agreeable to also following up with psychotherapy and medication management services. MANAGEMENT PLAN: Continue Paxil CR 25 mg po q am, hydroxyzine 25 mg QID, and Ambien 10 mg hs PRN for insomnia with plans to taper. Maintain safety precautions Patient to attend groups and participate in unit programming to develop coping strategies Engage patient in discharge planning process and arrange meeting with support system to ensure safe discharge planning when appropriate Patient to follow up with PCM upon discharge TIME SPENT: 35 minutes. Vital Signs Vital Signs Date Time Temp Pulse Resp B/P Pulse Ox O2 Delivery O2 Flow Rate FiO2 10/26/16 18:00 97.9 87 16 146/73 10/22/16 18:10 Room Air 10/22/16 17:35 95 Laboratory Data 24H Labs Laboratory Tests 2 10/26/16 08:45: Blood Urea Nitrogen 10, Creatinine 1.08, Sodium Level 142, Potassium Level 4.1, Chloride Level 106, Carbon Dioxide Level 27, Calcium Level 8.5, Aspartate Amino Transf (AST/SGOT) 124H, Alanine Aminotransferase (ALT/SGPT) 124H, Alkaline Phosphatase 108, Total Bilirubin 0.7, Total Protein 6.4, Albumin 3.1L, Albumin/ Globulin Ratio 0.94L, Anion Gap 9, Estimated Mean Plasma Glucose 111H, Glomerular Filtration Rate > 60.0, Hemoglobin A1c 5.5 CBC/BMP Laboratory Tests 10/26/16 08:45 Calcium Level 8.5, Aspartate Amino Transf (AST/SGOT) 124 H, Alanine Aminotransferase (ALT/SGPT) 124 H, Alkaline Phosphatase 108, Total Bilirubin 0.7 , Total Protein 6.4, Albumin 3.1 L Current Medications Current Medications Al Hydrox/Mg Hydrox/Simethicone (Mylanta) 30 ml Q4HP PRN PO HEARTBURN/ INDIGESTION; Start 10/22/16 at 19:15; Stop 11/21/16 at 19:14 Albuterol Sulfate (Proventil, Ventolin Hfa) 2 puff Q4HP PRN INH SHORTNESS OF BREATH Last administered on 10/26/16 17:01; Start 10/22/16 at 19:15; Stop 11/21 at 19:14 Clotrimazole (Lotrimin) apply to face daily as needed DAILYPRN TOP ; Start 10/23 at 17:00; Stop 10/23/16 at 17:02; Status DC Clotrimazole (Lotrimin) apply to face daily as needed DAILYPRN PRN TOP REDNESS/ IRRITATION; Start 10/23/16 at 17:00; Stop 11/22/16 at 16:59 Folic Acid (Folic Acid) 1 mg DAILY PO Last administered on 10/26/16 08:08; Start 10/23/16 at 09:00; Stop 11/22/16 at 08:59 Home Med (Med Rec Complete!) ASDIRECTED XX ; Start 10/22/16 at 17:30; Stop at 17:30; Status DC Hydroxyzine HCl (Atarax) 25 mg BIDP PO ; Start 10/25/16 at 06:30; Stop 10/25/16 at 06:40; Status DC Hydroxyzine HCl (Atarax) 25 mg BIDP PRN PO ANXIETY/AGITATION Last administered on 10/25/16 10:35; Start 10/25/16 at 06:45; Stop 10/25/16 at 17:37; Status DC Hydroxyzine HCl (Atarax) 25 mg QID PO Last administered on 10/26/16 17:00; Start 10/25/16 at 17:00; Stop 11/24/16 at 16:59 Ibuprofen (Advil) 400 mg Q6HP PRN PO PAIN Last administered on 10/26/16 19:36 ; Start 10/22/16 at 19:15; Stop 11/21/16 at 19:14 Lorazepam (Ativan) 2 mg ASDIRECTED PRN PO SEE PROTOCOL Last administered on 11:25; Start 10/22/16 at 19:15; Stop 10/24/16 at 16:14; Status DC Magnesium Hydroxide (Milk Of Magnesia) 30 ml DAILYPRN PRN PO CONSTIPATION; Start 10/22/16 at 19:15; Stop 11/21/16 at 19:14 Multivitamins (Theragram-M) 1 tab DAILY PO Last administered on 10/26/16 08:08 ; Start 10/23/16 at 09:00; Stop 11/22/16 at 08:59 Nicotine (Nicoderm Cq 21mg) 1 patch DAILY TD Last administered on 10/26/16 08: 08; Start 10/23/16 at 09:00; Stop 11/22/16 at 08:59 Olmesartan (Benicar) 20 mg DAILY PO Last administered on 10/26/16 08:11; Start 10/23/16 at 09:00; Stop 11/22/16 at 08:59 Paroxetine HCl (PAXil CR) 12.5 mg QAM PO Last administered on 10/24/16 08:41; Start 10/24/16 at 09:00; Stop 10/24/16 at 16:14; Status DC Paroxetine HCl (PAXil CR) 25 mg DAILY PO Last administered on 10/26/16 08:08; Start 10/25/16 at 09:00; Stop 11/24/16 at 08:59 Sodium Chloride ([place] Nasal [place]) 2 spray BIDP NA ; Start 10/23/16 at 17:00; Stop 10/23/16 at 17:02; Status DC Sodium Chloride ([place] Nasal [place]) 2 spray BIDP PRN NA NASAL CONGESTION Last administered on 10/26/16 17:02; Start 10/23/16 at 17:00; Stop 11/22/16 at 16:59 Thiamine HCl (Thiamine HCl) 100 mg BID PO Last administered on 10/25/16 08:41 ; Start 10/22/16 at 21:00; Stop 10/25/16 at 09:01; Status DC Zolpidem Tartrate (Ambien) 10 mg QHS PO Last administered on 10/25/16 23:09; Start 10/22/16 at 21:00; Stop 10/29/16 at 20:59 Allergies Coded Allergies: No Known Drug Allergy (Verified Allergy, Unknown, 10/07/12) Jocelynn Centeno Oct 26, 2016 19:52
[2016-10-26] MEDS: zolPIDEM TARTRATE 10MG TAB PO SCH (23:18)
[2016-10-27 06:51] VITALS: BP 139/103
[2016-10-27 08:02] LABS: ALBUMIN 3.4 GM/DL (3.2-5.2); ALBUMIN/GLOBULIN RATIO 0.92 (1.00-1.93); ALKALINE PHOSPHATASE 119 U/L (45-117); ALT/SGPT 132 U/L (12-78); ANION GAP 9 MEQ/L (8-16); AST/SGOT 113 U/L (15-37); BILIRUBIN,TOTAL 0.9 MG/DL (0.2-1.0); BLOOD UREA NITROGEN 12 MG/DL (7-18); CALCIUM LEVEL 8.7 MG/DL (8.5-10.1); CARBON DIOXIDE LEVEL 26 MEQ/L (21-32); CHLORIDE LEVEL 106 MEQ/L (98-107); CREATININE FOR GFR 1.16 MG/DL (0.70-1.30); GLOMERULAR FILTRATION RATE > 60.0 (>56); GLUCOSE, FASTING 107 MG/DL (70-105); SODIUM LEVEL 141 MEQ/L (136-145); TOTAL PROTEIN 7.1 GM/DL (6.4-8.2)
[2016-10-27] MEDS: NICOTINE 21MG/24HR 1 EA TRANSDERMAL TD SCH (08:12)
[2016-10-27] MEDS: PARoxetine 25 MG CR TAB (PAXIL CR) PO SCH (08:12)
[2016-10-27] MEDS: MULTIVITAMINS/MINERALS THERAP 1 TAB PO SCH (08:12)
[2016-10-27] MEDS: hydrOXYzine 25 MG TAB PO SCH ×4 (08:12→22:05)
[2016-10-27] MEDS: OLMESARTAN MEDOXOMIL 20 MG TAB (BENICAR) PO SCH (08:12)
[2016-10-27] MEDS: FOLIC ACID 1 MG TAB PO SCH (08:12)
[2016-10-27 08:57] VITALS: BP 132/87
--- NOTE | 2016-10-27 09:01 | IPNPDOC ---
[facility] Progress Note Progress Note DATE OF SERVICE: 10/27/16 HISTORY: Patient is 51-year-old male who presented to the emergency room after consuming alcohol and experiencing suicidal ideation with plan to drive vehicle into a truck or shoot self. Patient reports improvement to mood and anxiety today, rates current anxiety level as 0/10, depression 9/10 and attributes depression to "work, my DWI, and feeling like I'm just in limbo waiting to find out what's going to happen with those things." Patient denies suicidal and homicidal ideation, denies audiovisual hallucinations, denies urge to engage in self-injurious behavior. Patient indicates he is not sleeping well on Ambien, contrary to EMR, is requesting discontinuation of Ambien, states he has taken trazodone in the past and medication was effective at the 200 mg dose. Patient is also requesting Paxil dose increase in effort to further address symptoms of anxiety and depression. Patient denies medication side effects. Patient indicates today he feels he would like to go to inpatient alcohol treatment, however, states he does not want to go as bed to bed transfer. Patient denies physical pain at time of interaction and presents with no signs of acute distress. Addendum: During treatment team meeting patient indicated he experienced mild right-sided flank pain yesterday, nursing has been made aware of need for patient to be evaluated by PA. VITAL SIGNS: See below. NEW TEST RESULTS: Glucose elevated, also elevated are AST, ALT, alkaline phosphatase, low AGR. PA is monitoring. PAST MEDICAL/SURGICAL HISTORY: Hypertension, asthma, hyperlipidemia, some hearing loss. Patient denies history of head injury or seizure. Labs on admission indicated elevated MCH, MCV, AST, ALT, glucose, and alkaline phosphatase, and low BUN and AGR. UDS at time of admission indicated ethyl alcohol elevated at 0.047 10/23/16 EKG SINUS RHYTHM WITH SINUS ARRHYTHMIA CURRENT MEDICATIONS: See below. MENTAL STATUS EXAMINATION: Patient is a 51-year old male, who is alert, cooperative, makes adequate eye contact, exhibits adequate personal hygiene, is dressed in hospital clothing, ambulates with steady gait, appears stated age Speech: Is normal, of normal rate, rhythm, volume, spontaneous, coherent Language skills are good Thought processes including: Linear, coherent. Thought content: Rational, logical Abstract reasoning, and computation: Appears within normal limits Description of associations: Intact Description of abnormal or psychotic thoughts: Patient denies suicidal or homicidal ideation, denies auditory or visual hallucinations, does not appear to be responding to internal stimuli, does not endorse bizarre or paranoid ideation, does not appear preoccupied with violence or obsessions Judgment: Fair, continues to improve Insight: Fair, some improvement noted Orientation: Oriented x 3. Recent and remote memory: Intact. Attention span and concentration: Good. Language: Normal. Fund of knowledge: Adequate Mood: "I'm still worried about losing everything over this DWI." Patient appears less anxious anxious and depressed, no mood lability noted Affect: Constricted, no tearfulness today, brightens 1, congruent with mood DIAGNOSES: Major depressive disorder, recurrent moderate, alcohol use disorder, polysubstance use disorder, adjustment disorder, rule out substance-induced mood disorder ASSESSMENT: Patient appears to be adjusting to unit, remains isolative in room at times, but is more visible and has been participating in unit programming. Patient states she remains anxious and depressed regarding waiting to find out if he is going to have a job or if he will lose his home, car, and other resources. Patient has been placed on standing anxiolytic medication with good effect reported. Patient denies medication side effects, is today requesting Ambien taper, is agreeable to initiation of trazodone which he states he has taken in the past with good effect. Patient is also requesting Paxil dose increase in effort to further address symptoms of anxiety and depression. Patient denies suicidal and homicidal ideation and verbalizes awareness of how to access supportive services on the unit if needed. Will monitor patient's response to medications and for side effects, and will evaluate patient's safety , resolution of suicidal ideation, and discharge readiness. Patient states when prepared for discharge he would like to first go home, and then go to inpatient alcohol rehabilitation. 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 Patient states he is also agreeable to also following up with psychotherapy and medication management services. MANAGEMENT PLAN: Increase Paxil CR to 37.5 mg po q am. Initiate trazodone 75 mg po hs PRN insomnia with plan to increase at tolerated by patient. Reduce Ambien to 5 mg hs PRN insomnia with plans to discontinue. Continue hydroxyzine 25 mg QID. Maintain safety precautions Patient to attend groups and participate in unit programming to develop coping strategies Engage patient in discharge planning process and arrange meeting with support system to ensure safe discharge planning when appropriate Patient to follow up with PCM upon discharge TIME SPENT: 35 minutes Vital Signs Vital Signs Date Time Temp Pulse Resp B/P Pulse Ox O2 Delivery O2 Flow Rate FiO2 10/27/16 08:57 110 132/87 10/27/16 06:51 98.1 20 10/22/16 18:10 Room Air 10/22/16 17:35 95 Laboratory Data 24H Labs Laboratory Tests 2 10/27/16 07:21: Blood Urea Nitrogen 12, Creatinine 1.16, Sodium Level 141, Potassium Level 4.0, Chloride Level 106, Carbon Dioxide Level 26, Calcium Level 8.7, Aspartate Amino Transf (AST/SGOT) 113H, Alanine Aminotransferase (ALT/SGPT) 132H, Alkaline Phosphatase 119H, Total Bilirubin 0.9, Total Protein 7.1, Albumin 3.4, Albumin/ Globulin Ratio 0.92L, Anion Gap 9, Glomerular Filtration Rate > 60.0 CBC/BMP Laboratory Tests 10/27/16 07:21 Calcium Level 8.7, Aspartate Amino Transf (AST/SGOT) 113 H, Alanine Aminotransferase (ALT/SGPT) 132 H, Alkaline Phosphatase 119 H, Total Bilirubin 0.9, Total Protein 7.1, Albumin 3.4 Current Medications Current Medications Al Hydrox/Mg Hydrox/Simethicone (Mylanta) 30 ml Q4HP PRN PO HEARTBURN/ INDIGESTION; Start 10/22/16 at 19:15; Stop 11/21/16 at 19:14 Albuterol Sulfate (Proventil, Ventolin Hfa) 2 puff Q4HP PRN INH SHORTNESS OF BREATH Last administered on 10/26/16t 21:51; Start 10/22/16 at 19:15; Stop 11/21 at 19:14 Clotrimazole (Lotrimin) apply to face daily as needed DAILYPRN TOP ; Start 10/23 at 17:00; Stop 10/23/16 at 17:02; Status DC Clotrimazole (Lotrimin) apply to face daily as needed DAILYPRN PRN TOP REDNESS/ IRRITATION; Start 10/23/16 at 17:00; Stop 11/22/16 at 16:59 Folic Acid (Folic Acid) 1 mg DAILY PO Last administered on 10/27/16 08:12; Start 10/23/16 at 09:00; Stop 11/22/16 at 08:59 Home Med (Med Rec Complete!) ASDIRECTED XX ; Start 10/22/16 at 17:30; Stop at 17:30; Status DC Hydroxyzine HCl (Atarax) 25 mg BIDP PO ; Start 10/25/16 at 06:30; Stop 10/25/16 at 06:40; Status DC Hydroxyzine HCl (Atarax) 25 mg BIDP PRN PO ANXIETY/AGITATION Last administered on 10/25/16 10:35; Start 10/25/16 at 06:45; Stop 10/25/16 at 17:37; Status DC Hydroxyzine HCl (Atarax) 25 mg QID PO Last administered on 10/27/16 08:12; Start 10/25/16 at 17:00; Stop 11/24/16 at 16:59 Ibuprofen (Advil) 400 mg Q6HP PRN PO PAIN Last administered on 10/26/16 19:36 ; Start 10/22/16 at 19:15; Stop 11/21/16 at 19:14 Lorazepam (Ativan) 2 mg ASDIRECTED PRN PO SEE PROTOCOL Last administered on 11:25; Start 10/22/16 at 19:15; Stop 10/24/16 at 16:14; Status DC Magnesium Hydroxide (Milk Of Magnesia) 30 ml DAILYPRN PRN PO CONSTIPATION; Start 10/22/16 at 19:15; Stop 11/21/16 at 19:14 Multivitamins (Theragram-M) 1 tab DAILY PO Last administered on 10/27/16 08:12 ; Start 10/23/16 at 09:00; Stop 11/22/16 at 08:59 Nicotine (Nicoderm Cq 21mg) 1 patch DAILY TD Last administered on 10/27/16 08: 12; Start 10/23/16 at 09:00; Stop 11/22/16 at 08:59 Olmesartan (Benicar) 20 mg DAILY PO Last administered on 10/27/16 08:12; Start 10/23/16 at 09:00; Stop 11/22/16 at 08:59 Paroxetine HCl (PAXil CR) 12.5 mg QAM PO Last administered on 10/24/16 08:41; Start 10/24/16 at 09:00; Stop 10/24/16 at 16:14; Status DC Paroxetine HCl (PAXil CR) 25 mg DAILY PO Last administered on 10/27/16 08:12; Start 10/25/16 at 09:00; Stop 11/24/16 at 08:59 Sodium Chloride ([place] Nasal [place]) 2 spray BIDP NA ; Start 10/23/16 at 17:00; Stop 10/23/16 at 17:02; Status DC Sodium Chloride ([place] Nasal [place]) 2 spray BIDP PRN NA NASAL CONGESTION Last administered on 10/26/16 21:52; Start 10/23/16 at 17:00; Stop 11/22/16 at 16:59 Thiamine HCl (Thiamine HCl) 100 mg BID PO Last administered on 10/25/16 08:41 ; Start 10/22/16 at 21:00; Stop 10/25/16 at 09:01; Status DC Zolpidem Tartrate (Ambien) 10 mg QHS PO Last administered on 10/26/16 23:18; Start 10/22/16 at 21:00; Stop 10/29/16 at 20:59 Allergies Coded Allergies: No Known Drug Allergy (Verified Allergy, Unknown, 10/07/12) Jocelynn Centeno Oct 27, 2016 09:01
[2016-10-27 11:44] VITALS: BP 132/87
[2016-10-27] MEDS: SODIUM CHLORIDE NASAL 0.65% SPRAY BTL (OCEAN) PRN ×2 (15:56→22:04)
[2016-10-27] MEDS: IBUPROFEN 400 MG TAB PO PRN ×2 (15:56→22:05)
[2016-10-27 18:00] VITALS: BP 136/85
[2016-10-27] MEDS ORDERED: traZODone 50 MG TAB PO PRN ×2 (18:30→21:00)
[2016-10-27] MEDS: ALBUTEROL 90 MCG/ACT 8GM HFA INHALER INH PRN (22:04)
[2016-10-27] MEDS: zolPIDEM TARTRATE 10MG TAB PO SCH (22:04)
[2016-10-28 06:33] VITALS: BP 151/88
[2016-10-28 07:51] LABS: ALBUMIN 3.2 GM/DL (3.2-5.2); ALBUMIN/GLOBULIN RATIO 0.84 (1.00-1.93); ALKALINE PHOSPHATASE 107 U/L (45-117); ALT/SGPT 117 U/L (12-78); ANION GAP 8 MEQ/L (8-16); AST/SGOT 100 U/L (15-37); BILIRUBIN,TOTAL 0.7 MG/DL (0.2-1.0); BLOOD UREA NITROGEN 11 MG/DL (7-18); CALCIUM LEVEL 8.6 MG/DL (8.5-10.1); CARBON DIOXIDE LEVEL 26 MEQ/L (21-32); CHLORIDE LEVEL 107 MEQ/L (98-107); GLOMERULAR FILTRATION RATE > 60.0 (>56); GLUCOSE, FASTING 107 MG/DL (70-105); POTASSIUM SERUM 3.9 MEQ/L (3.5-5.1); SODIUM LEVEL 141 MEQ/L (136-145)
[2016-10-28] MEDS: MULTIVITAMINS/MINERALS THERAP 1 TAB PO SCH (08:04)
[2016-10-28] MEDS: SODIUM CHLORIDE NASAL 0.65% SPRAY BTL (OCEAN) PRN ×3 (08:05→20:40)
[2016-10-28] MEDS: FOLIC ACID 1 MG TAB PO SCH (08:05)
[2016-10-28] MEDS: OLMESARTAN MEDOXOMIL 20 MG TAB (BENICAR) PO SCH (08:05)
[2016-10-28] MEDS: NICOTINE 21MG/24HR 1 EA TRANSDERMAL TD SCH (08:05)
[2016-10-28] MEDS: hydrOXYzine 25 MG TAB PO SCH ×4 (08:05→20:39)
[2016-10-28 09:15] VITALS: BP 141/87
[2016-10-28] MEDS: PARoxetine 12.5 MG **CR** TAB PO SCH (09:28)
--- NOTE | 2016-10-28 10:46 | IPNPDOC ---
Subjective Date Seen The patient was seen on 10/28/16. Subjective Chief Complaint/HPI The patient is a 51-year-old male admitted with a reason for visit of Unspecified Depressive Disorder. Events since last encounter Requested to evaluate patient for left sided flank pain. Patient states he is eating and drinking. If he increases his fluid intake he notices pain in the left flank area. He has had some epigastric abdominal discomfort. He denies any nausea or vomiting. Denies diarrhea or constipation. Reports no dysuria, hematuria, frequency, urgency or any urinary complaints. Pulmonary: Denies: Dyspnea, Cough Cardiovascular: Denies: Chest Pain, Palpitations, Orthopnea, Paroxysmal Noc. Dyspnea, Lt Headedness Genitourinary: Denies: Dysuria, Frequency, Incontinence, Hematuria Objective Physical Examination General Exam: Positive: Alert Eye Exam: Positive: PERRLA ENT Exam: Positive: Atraumatic, Mucous membr. moist/pink, Pharynx Normal Neck Exam: Positive: Supple Chest Exam: Positive: Clear to auscultation, Normal air movement Heart Exam: Positive: Rate Normal, Regular Rhythm, Normal S1, Normal S2, Negative: Murmurs, Rubs Abdomen Exam: Positive: Normal bowel sounds, Soft, Tenderness (mild epigastric tenderness is noted. There is no CVA tenderness.), Negative: Hepatospenomegaly Extremity Exam: Positive: Normal pulses, Other (there is no tenderness with palpation over the spine or paraspinal muscles.), Negative: Clubbing, Cyanosis, Edema Assessment /Plan Problems (1) Elevated LFTs Status: Acute Response to Treatment: Improving Problem Text: * LFTs trending downward * Hepatitis profile negative * Right upper quadrant ultrasound 10/26/16 with fatty infiltration. * Continue to monitor CMP. (2) Abdominal pain Status: Acute Problem Text: * Patient noted to have epigastric discomfort. * Patient is reporting left flank discomfort although no CVA tenderness. * CMP this a.m. * Add amylase * Check UA/UC * Check CT abdomen and pelvis (3) History of ETOH abuse Status: Chronic (4) Hypertension Problem Text: * Continue Benicar. Plan/VTE VTE Prophylaxis Ordered?: No (ambulatory) Disposition As per attending VS, I&O, 24H, Fishbone Vital Signs/I&O Vital Signs Date Time Temp Pulse Resp B/P (MAP) Pulse Ox O2 Delivery O2 Flow Rate FiO2 10/28/16 08:05 141/87 10/28/16 06:33 97.8 97 18 Room Air 10/22/16 17:35 95 Laboratory Data 24H LABS Laboratory Tests 2 10/28/16 07:18: Anion Gap 8, Glomerular Filtration Rate > 60.0, Blood Urea Nitrogen 11, Creatinine 1.10, Sodium Level 141, Potassium Level 3.9, Chloride Level 107, Carbon Dioxide Level 26, Calcium Level 8.6, Aspartate Amino Transf (AST/SGOT) 100H, Alanine Aminotransferase (ALT/SGPT) 117H, Alkaline Phosphatase 107, Total Bilirubin 0.7, Total Protein 7.0, Albumin 3.2, Albumin/Globulin Ratio 0.84L CBC/BMP Laboratory Tests 10/28/16 07:18 Calcium Level 8.6, Aspartate Amino Transf (AST/SGOT) 100 H, Alanine Aminotransferase (ALT/SGPT) 117 H, Alkaline Phosphatase 107, Total Bilirubin 0.7 , Total Protein 7.0, Albumin 3.2 Kalee Baker Oct 28, 2016 10:46
[2016-10-28 11:08] LABS: BASO # 0.1 K/mm3 (0.0-0.2); BASO % 0.9 % (0.0-1.0); EOS # 0.5 K/mm3 (0.0-0.50); EOS % 5.1 % (0.0-3.0); LARGE UNSTAINED CELL # 0.1 K/mm3 (0.0-0.4); LARGE UNSTAINED CELL % 1.5 % (0.0-4.0); LYMPH # 2.5 K/mm3 (1.5-4.5); LYMPH % 27.5 % (24.0-44.0); MEAN CORPUSCULAR VOLUME 102.9 fl (80.0-96.0); MONO # 0.7 K/mm3 (0.0-0.8); MONO % 7.9 % (0.0-5.0); NEUTROPHILS # 5.1 K/mm3 (1.8-7.7); PLATELET COUNT, AUTOMATED 310 k/mm3 (150-450); RED CELL DISTRIBUTION WIDTH 13.4 % (11.5-14.5)
[2016-10-28] MEDS: IBUPROFEN 400 MG TAB PO PRN ×2 (11:59→20:39)
[2016-10-28 12:00] VITALS: BP 124/82
--- NOTE | 2016-10-28 14:24 | IPNPDOC ---
[facility] Progress Note Progress Note DATE OF SERVICE: 10/28/16 HISTORY: Patient is 51-year-old male who presented to the emergency room after consuming alcohol and experiencing suicidal ideation with plan to drive vehicle into a truck or shoot self. Patient reports improvement to mood and anxiety, rates current anxiety level as 3/10, depression 9/10 and continues to attribute depression to "feeling like I'm in limbo, waiting to hear if I lose my job, my house, my car, my life." Patient denies suicidal and homicidal ideation, however , today states he has been experiencing intermittent passive suicidal ideation in the form of "sometimes I just wonder if I want to be around if I'm going to lose everything," denies having plan or intent to harm self and states he will alert staff if symptoms worsen and/or become unmanageable. Patient denies audiovisual hallucinations and urge to engage in self-injurious behavior, denies symptoms of withdrawal. Patient indicates he continues to struggle with sleep, request trazodone dose increase, remains in agreement with taper off of Ambien due to ineffectiveness and in preparation for entering alcohol rehabilitation. Patient reiterates he has taken trazodone in past, notes medication was effective at the 200 mg dose. Patient took first increased dose of Paxil this morning, denies medication side effects. Patient reiterates today he is now wanting to go to inpatient alcohol treatment, does not want to go as bed to bed transfer, is now agreeable to admissions coordinator working with him on referrals. Patient was evaluated by PA this morning for report of flank pain , denies physical pain at time of interaction, and presents with no signs of acute distress. VITAL SIGNS: See below. NEW TEST RESULTS: Recent lab results indicate low RBC and AGR, and elevated MCH , MCV, [place] %, Eos %, glucose, AST, and ALT. PA is monitoring. PAST MEDICAL/SURGICAL HISTORY: Hypertension, asthma, hyperlipidemia, some hearing loss. Patient denies history of head injury or seizure. Labs on admission indicated elevated MCH, MCV, AST, ALT, glucose, and alkaline phosphatase, and low BUN and AGR. UDS at time of admission indicated ethyl alcohol elevated at 0.047 10/23/16 EKG SINUS RHYTHM WITH SINUS ARRHYTHMIA 10/26/16 right upper quadrant ultrasound with fatty infiltration 10/28/16 abdominal/pelvic CT results pending Urine culture pending CURRENT MEDICATIONS: See below. MENTAL STATUS EXAMINATION: Patient is a 51-year old male, who is alert, cooperative, makes adequate eye contact, exhibits adequate personal hygiene, is dressed in hospital clothing, ambulates with steady gait, appears stated age. Has mild tremor to hands, notes has had X 4-5 months. Speech: Is normal, of normal rate, rhythm, volume, spontaneous, coherent Language skills are good Thought processes including: Linear, coherent. Thought content: Rational, logical Abstract reasoning, and computation: Appears within normal limits Description of associations: Intact Description of abnormal or psychotic thoughts: Patient denies suicidal or homicidal ideation, denies auditory or visual hallucinations, does not appear to be responding to internal stimuli, does not endorse bizarre or paranoid ideation, does not appear preoccupied with violence or obsessions Judgment: Fair, continues to improve Insight: Fair, some improvement noted Orientation: Oriented x 3. Recent and remote memory: Intact. Attention span and concentration: Good. Language: Normal. Fund of knowledge: Adequate Mood: "I'm ok, still worried about losing everything over this DWI." Patient appears less anxious anxious and depressed, no mood lability noted Affect: Constricted, no tearfulness today, brightens 2, expresses humor, congruent with mood DIAGNOSES: Major depressive disorder, recurrent moderate, alcohol use disorder, polysubstance use disorder, adjustment disorder, rule out substance-induced mood disorder ASSESSMENT: Patient continues to adjust to unit, is less isolative, and has been attending unit programming regularly, indicates he is benefiting from groups. Patient remains anxious and depressed regarding waiting to find out if he is going to have a job or if he will lose his home, car, and other resources, indicates antidepressant is helpful in reducing aforementioned symptoms. Patient remains on standing hydroxyzine with good effect reported. Patient denies medication side effects, remains in agreement with Ambien taper, is agreeable to continuation of trazodone which he states he has taken in the past with good effect. Patient denies current suicidal and homicidal ideation and verbalizes awareness of how to access supportive services on the unit if needed. Will monitor patient's response to medications and for side effects, and will evaluate patient's safety, resolution of suicidal ideation, and discharge readiness. Patient states when prepared for discharge he would like to first go home, and then go to inpatient alcohol rehabilitation. Patient has declined assistance from admissions coordinator in making referrals to inpatient alcohol treatment, today makes request for assistance from admissions coordinator for referrals to inpatient alcohol rehabilitation, adds he remains agreeable to also following up with psychotherapy and medication management services. MANAGEMENT PLAN: Increase trazodone to 100 mg po hs PRN insomnia with plan to increase as tolerated by patient. Continue Paxil CR to 37.5 mg po q am. Continue Ambien 5 mg hs PRN insomnia with plan to discontinue. Continue hydroxyzine 25 mg QID. Maintain safety precautions Patient to attend groups and participate in unit programming to develop coping strategies Engage patient in discharge planning process and arrange meeting with support system to ensure safe discharge planning when appropriate Patient to follow up with PCM upon discharge TIME SPENT: 35 minutes Vital Signs Vital Signs Date Time Temp Pulse Resp B/P (MAP) Pulse Ox O2 Delivery O2 Flow Rate FiO2 10/28/16 12:00 98.2 83 18 124/82 (96) 10/28/16 06:33 Room Air 10/22/16 17:35 95 Laboratory Data 24H Labs Laboratory Tests 2 10/28/16 07:18: Anion Gap 8, Glomerular Filtration Rate > 60.0, Blood Urea Nitrogen 11, Creatinine 1.10, Sodium Level 141, Potassium Level 3.9, Chloride Level 107, Carbon Dioxide Level 26, Calcium Level 8.6, Aspartate Amino Transf (AST/SGOT) 100H, Alanine Aminotransferase (ALT/SGPT) 117H, Alkaline Phosphatase 107, Total Bilirubin 0.7, Total Protein 7.0, Albumin 3.2, Albumin/Globulin Ratio 0.84L 10/28/16 10:30: Urine Appearance CLEAR, Urine Color YELLOW, Urine pH 5.0, Urine Specific [place] 1.013, Urine Protein NEGATIVE, Urine Glucose (UA) NEGATIVE, Urine Ketones NEGATIVE, Urine Urobilinogen 0.2, Urine Bilirubin NEGATIVE, Urine Leukocyte Esterase NEGATIVE, Urine Blood NEGATIVE, Urine Nitrite NEGATIVE, Urine WBC (Auto) 0, Urine RBC (Auto) 0, Urine Hyaline Casts (Auto) 0, Urine Bacteria (Auto) NEGATIVE, Urine Squamous Epithelial Cells 0, Urine Sperm (Auto) 10/28/16 10:55: White Blood Count 9.0, Red Blood Count 4.27L, Hemoglobin 15.4, Hematocrit 43.9, Mean Corpuscular Volume 102.9H, Mean Corpuscular Hemoglobin 36.0H, Mean Corpuscular Hemoglobin Concent 35.0, Red Cell Distribution Width 13.4, Platelet Count 310, Neutrophils (%) (Auto) 57.0, Lymphocytes (%) (Auto) 27.5, Monocytes ( %) (Auto) 7.9H, Eosinophils (%) (Auto) 5.1H, Basophils (%) (Auto) 0.9, Neutrophils # (Auto) 5.1, Lymphocytes # (Auto) 2.5, Monocytes # (Auto) 0.7, Eosinophils # (Auto) 0.5, Basophils # (Auto) 0.1, Large Unclassified Cells % 1.5 , Large Unclassified Cells # 0.1, Amylase Level 50 CBC/BMP Laboratory Tests 10/28/16 07:18 Calcium Level 8.6, Aspartate Amino Transf (AST/SGOT) 100 H, Alanine Aminotransferase (ALT/SGPT) 117 H, Alkaline Phosphatase 107, Total Bilirubin 0.7 , Total Protein 7.0, Albumin 3.2 10/28/16 10:55 Red Blood Count 4.27 L, Mean Corpuscular Volume 102.9 H, Mean Corpuscular Hemoglobin 36.0 H, Mean Corpuscular Hemoglobin Concent 35.0, Red Cell Distribution Width 13.4, Neutrophils (%) (Auto) 57.0, Lymphocytes (%) (Auto) 27.5, Monocytes (%) (Auto) 7.9 H, Eosinophils (%) (Auto) 5.1 H, Basophils (%) ( Auto) 0.9, Neutrophils # (Auto) 5.1, Lymphocytes # (Auto) 2.5, Monocytes # (Auto ) 0.7, Eosinophils # (Auto) 0.5, Basophils # (Auto) 0.1 Current Medications Current Medications Al Hydrox/Mg Hydrox/Simethicone (Mylanta) 30 ml Q4HP PRN PO HEARTBURN/ INDIGESTION; Start 10/22/16 at 19:15; Stop 11/21/16 at 19:14 Albuterol Sulfate (Proventil, Ventolin Hfa) 2 puff Q4HP PRN INH SHORTNESS OF BREATH Last administered on 10/27/16t 22:04; Start 10/22/16 at 19:15; Stop 11/21 at 19:14 Clotrimazole (Lotrimin) apply to face daily as needed DAILYPRN TOP ; Start 10/23 at 17:00; Stop 10/23/16 at 17:02; Status DC Clotrimazole (Lotrimin) apply to face daily as needed DAILYPRN PRN TOP REDNESS/ IRRITATION; Start 10/23/16 at 17:00; Stop 11/22/16 at 16:59 Folic Acid (Folic Acid) 1 mg DAILY PO Last administered on 10/28/16 08:05; Start 10/23/16 at 09:00; Stop 11/22/16 at 08:59 Home Med (Med Rec Complete!) ASDIRECTED XX ; Start 10/22/16 at 17:30; Stop at 17:30; Status DC Hydroxyzine HCl (Atarax) 25 mg BIDP PO ; Start 10/25/16 at 06:30; Stop 10/25/16 at 06:40; Status DC Hydroxyzine HCl (Atarax) 25 mg BIDP PRN PO ANXIETY/AGITATION Last administered on 10/25/16 10:35; Start 10/25/16 at 06:45; Stop 10/25/16 at 17:37; Status DC Hydroxyzine HCl (Atarax) 25 mg QID PO Last administered on 10/28/16 12:06; Start 10/25/16 at 17:00; Stop 11/24/16 at 16:59 Ibuprofen (Advil) 400 mg Q6HP PRN PO PAIN Last administered on 10/28/16 11:59 ; Start 10/22/16 at 19:15; Stop 11/21/16 at 19:14 Lorazepam (Ativan) 2 mg ASDIRECTED PRN PO SEE PROTOCOL Last administered on 11:25; Start 10/22/16 at 19:15; Stop 10/24/16 at 16:14; Status DC Magnesium Hydroxide (Milk Of Magnesia) 30 ml DAILYPRN PRN PO CONSTIPATION; Start 10/22/16 at 19:15; Stop 11/21/16 at 19:14 Multivitamins (Theragram-M) 1 tab DAILY PO Last administered on 10/28/16 08:04 ; Start 10/23/16 at 09:00; Stop 11/22/16 at 08:59 Nicotine (Nicoderm Cq 21mg) 1 patch DAILY TD Last administered on 10/28/16 08: 05; Start 10/23/16 at 09:00; Stop 11/22/16 at 08:59 Olmesartan (Benicar) 20 mg DAILY PO Last administered on 10/28/16 08:05; Start 10/23/16 at 09:00; Stop 11/22/16 at 08:59 Paroxetine HCl (PAXil CR) 12.5 mg QAM PO Last administered on 10/24/16 08:41; Start 10/24/16 at 09:00; Stop 10/24/16 at 16:14; Status DC Paroxetine HCl (PAXil CR) 25 mg DAILY PO Last administered on 10/27/16 08:12; Start 10/25/16 at 09:00; Stop 10/27/16 at 18:22; Status DC Paroxetine HCl (PAXil CR) 37.5 mg DAILY PO Last administered on 10/28/16 09:28 ; Start 10/28/16 at 09:00; Stop 11/27/16 at 08:59 Sodium Chloride ([place]eder Nasal [place]) 2 spray BIDP NA ; Start 10/23/16 at 17:00; Stop 10/23/16 at 17:02; Status DC Sodium Chloride (Reeder Nasal Walls) 2 spray BIDP PRN NA NASAL CONGESTION Last administered on 10/28/16 08:05; Start 10/23/16 at 17:00; Stop 11/22/16 at 16:59 Thiamine HCl (Thiamine HCl) 100 mg BID PO Last administered on 10/25/16 08:41 ; Start 10/22/16 at 21:00; Stop 10/25/16 at 09:01; Status DC Trazodone HCl (Desyrel) 75 mg QHSP PRN PO INSOMNIA; Start 10/27/16 at 18:30; Stop 10/27/16 at 18:30; Status DC Trazodone HCl (Desyrel) 75 mg QHSP PRN PO INSOMNIA Last administered on 22:06; Start 10/27/16 at 21:00; Stop 11/26/16 at 20:59 Zolpidem Tartrate (Ambien) 5 mg QHS PO Last administered on 10/27/16 22:04; Start 10/27/16 at 21:00; Stop 11/03/16 at 20:59 Zolpidem Tartrate (Ambien) 10 mg QHS PO Last administered on 10/26/16t 23:18; Start 10/22/16 at 21:00; Stop 10/27/16 at 18:22; Status DC Allergies Coded Allergies: No Known Drug Allergy (Verified Allergy, Unknown, 10/07/12) Jocelynn Centeno Oct 28, 2016 14:24
[2016-10-28] MEDS ORDERED: traZODone 100 MG TAB PO PRN (14:30)
[2016-10-28 18:00] VITALS: BP 138/94
[2016-10-28 18:27] VITALS: BP 124/82
[2016-10-28] MEDS: CLOTRIMAZOLE 1% TOPICAL CREAM 30GM TOP PRN (20:40)
[2016-10-28] MEDS: ALBUTEROL 90 MCG/ACT 8GM HFA INHALER INH PRN (20:40)
[2016-10-28] MEDS: zolPIDEM TARTRATE 10MG TAB PO SCH (23:01)
--- NOTE | 2016-10-29 03:58 | REP ---
Clinical: Bilateral flank pain. Comparison: None available. Findings: Lung bases demonstrate a 5 mm noncalcified subpleural nodule along the right lower lobe (image 5). Visualized heart and pericardium are normal. Hepatomegaly and fatty infiltration to the liver without focal hepatic lesion identified. Spleen, pancreas, gallbladder, and bilateral adrenal glands are normal. The kidneys demonstrate symmetric and likely chronic perinephric stranding without hydroureteronephrosis, intrarenal or obstructing ureteral calculi. The enteric system is without obstruction or acute inflammatory process. Normal terminal ileum and appendix are identified in the right lower quadrant. Colonic diverticulosis noted without acute diverticulitis. Pelvis demonstrates normal bladder and age appropriate prostate/seminal vesicles. Fat containing left inguinal hernia. No ascites. No adenopathy. No mass lesion. Abdominal aorta and vasculature without aneurysm. Surrounding musculoskeletal structures grossly intact. Impression: 1. Hepatomegaly and hepatosteatosis without focal hepatic lesion. 2. Colonic diverticula without acute diverticulitis. 3. Mild symmetric and likely chronic perinephric stranding without hydroureteronephrosis or nephrolithiasis. 4. Small fat containing left inguinal hernia. Signed by Marcelo Chambers MD 10/29/2016 03:50 A
[2016-10-29 06:18] VITALS: BP 144/96
[2016-10-29 06:19] VITALS: BP 144/96
[2016-10-29 07:45] LABS: ALBUMIN 3.5 GM/DL (3.2-5.2); ALKALINE PHOSPHATASE 107 U/L (45-117); ALT/SGPT 115 U/L (12-78); ANION GAP 6 MEQ/L (8-16); AST/SGOT 91 U/L (15-37); BILIRUBIN,TOTAL 0.8 MG/DL (0.2-1.0); BLOOD UREA NITROGEN 9 MG/DL (7-18); CALCIUM LEVEL 8.7 MG/DL (8.5-10.1); CARBON DIOXIDE LEVEL 27 MEQ/L (21-32); CHLORIDE LEVEL 109 MEQ/L (98-107); CREATININE FOR GFR 1.13 MG/DL (0.70-1.30); GLOMERULAR FILTRATION RATE > 60.0 (>56); GLUCOSE, FASTING 106 MG/DL (70-105); POTASSIUM SERUM 4.1 MEQ/L (3.5-5.1); SODIUM LEVEL 142 MEQ/L (136-145)
[2016-10-29] MEDS: OLMESARTAN MEDOXOMIL 20 MG TAB (BENICAR) PO SCH (08:15)
[2016-10-29] MEDS: FOLIC ACID 1 MG TAB PO SCH (08:15)
[2016-10-29] MEDS: MULTIVITAMINS/MINERALS THERAP 1 TAB PO SCH (08:15)
[2016-10-29] MEDS: hydrOXYzine 25 MG TAB PO SCH ×4 (08:16→20:47)
[2016-10-29] MEDS: PARoxetine 12.5 MG **CR** TAB PO SCH (08:16)
[2016-10-29] MEDS: NICOTINE 21MG/24HR 1 EA TRANSDERMAL TD SCH (08:18)
[2016-10-29] MEDS ORDERED: LIDOCAINE 5% (LIDODERM) PATCH TD SCH (09:00)
--- NOTE | 2016-10-29 09:53 | IPNPDOC ---
Subjective Date Seen The patient was seen on 10/29/16. Subjective Chief Complaint/HPI The patient is a 51-year-old male admitted with a reason for visit of Unspecified Depressive Disorder. Events since last encounter Pt states no abdominal pain but still has some discomfort left lower back area. Sometimes pain with movement or in bed. If changes position, seems to help. No LE pain. No weakness, paresthesis LEs. Denies DOCUMENTATION SPEC. Objective Physical Examination General Exam: Positive: Alert Eye Exam: Positive: PERRLA ENT Exam: Positive: Atraumatic, Mucous membr. moist/pink, Pharynx Normal Neck Exam: Positive: Supple Chest Exam: Positive: Clear to auscultation, Normal air movement Heart Exam: Positive: Rate Normal, Regular Rhythm, Normal S1, Normal S2, Negative: Murmurs, Rubs Abdomen Exam: Positive: Normal bowel sounds, Soft, Tenderness (mild epigastric tenderness is noted. There is no CVA tenderness.), Negative: Hepatospenomegaly Extremity Exam: Positive: Normal pulses, Other (there is no tenderness with palpation over the spine or paraspinal muscles. there is mild TTP Left paraspinal muscles lumbar area. ), Negative: Clubbing, Cyanosis, Edema Neuro Exam: Positive: Normal Gait Assessment /Plan Problems (1) Elevated LFTs Status: Acute Response to Treatment: Improving Problem Text: * LFTs trending downward * Hepatitis profile negative * Right upper quadrant ultrasound 10/26/16 with fatty infiltration. * CT with fatty infiltration. * Continue to monitor CMP. (2) Abdominal pain Status: Acute Problem Text: * Patient noted to have epigastric discomfort. * Patient is reporting left flank discomfort although no CVA tenderness. * Afebrile. No leukocytosis. * CMP this a.m. LFTs trend downward. * amylase WNL. * UA/UC neg. * CT abdomen and pelvis 10/28/16. 1. Hepatomegaly and hepatosteatosis without focal hepatic lesion. 2. Colonic diverticula without acute diverticulitis. 3. Mild symmetric and likely chronic perinephric stranding without hydroureteronephrosis or nephrolithiasis. 4. Small fat containing left inguinal hernia. (3) History of ETOH abuse Status: Chronic Problem Text: * as per attending. (4) Hypertension Problem Text: * Continue Benicar. (5) Back pain Problem Text: * Will check XR Thoracic and LS spine. * Apply Lidoderm patch as needed daily. Plan/VTE VTE Prophylaxis Ordered?: No (ambulatory) Disposition as per Psychiatry VS, I&O, 24H, [facility] Vital Signs/I&O Vital Signs Date Time Temp Pulse Resp B/P (MAP) Pulse Ox O2 Delivery O2 Flow Rate FiO2 10/29/16 08:15 144/96 10/29/16 06:19 98.8 88 20 Room Air 10/28/16 18:00 95 Laboratory Data 24H LABS Laboratory Tests 2 10/28/16 10:30: Urine Appearance CLEAR, Urine Color YELLOW, Urine pH 5.0, Urine Specific [place] 1.013, Urine Protein NEGATIVE, Urine Glucose (UA) NEGATIVE, Urine Ketones NEGATIVE, Urine Urobilinogen 0.2, Urine Bilirubin NEGATIVE, Urine Leukocyte Esterase NEGATIVE, Urine Blood NEGATIVE, Urine Nitrite NEGATIVE, Urine WBC (Auto) 0, Urine RBC (Auto) 0, Urine Hyaline Casts (Auto) 0, Urine Bacteria (Auto) NEGATIVE, Urine Squamous Epithelial Cells 0, Urine Sperm (Auto) 10/28/16 10:55: White Blood Count 9.0, Red Blood Count 4.27L, Hemoglobin 15.4, Hematocrit 43.9, Mean Corpuscular Volume 102.9H, Mean Corpuscular Hemoglobin 36.0H, Mean Corpuscular Hemoglobin Concent 35.0, Red Cell Distribution Width 13.4, Platelet Count 310, Neutrophils (%) (Auto) 57.0, Lymphocytes (%) (Auto) 27.5, Monocytes ( %) (Auto) 7.9H, Eosinophils (%) (Auto) 5.1H, Basophils (%) (Auto) 0.9, Neutrophils # (Auto) 5.1, Lymphocytes # (Auto) 2.5, Monocytes # (Auto) 0.7, Eosinophils # (Auto) 0.5, Basophils # (Auto) 0.1, Large Unclassified Cells % 1.5 , Large Unclassified Cells # 0.1, Amylase Level 50 10/29/16 07:10: Anion Gap 6L, Glomerular Filtration Rate > 60.0, Blood Urea Nitrogen 9, Creatinine 1.13, Sodium Level 142, Potassium Level 4.1, Chloride Level 109H, Carbon Dioxide Level 27, Calcium Level 8.7, Aspartate Amino Transf (AST/SGOT) 91H, Alanine Aminotransferase (ALT/SGPT) 115H, Alkaline Phosphatase 107, Total Bilirubin 0.8, Total Protein 7.0, Albumin 3.5, Albumin/Globulin Ratio 1.00 CBC/BMP Laboratory Tests 10/28/16 10:55 Red Blood Count 4.27 L, Mean Corpuscular Volume 102.9 H, Mean Corpuscular Hemoglobin 36.0 H, Mean Corpuscular Hemoglobin Concent 35.0, Red Cell Distribution Width 13.4, Neutrophils (%) (Auto) 57.0, Lymphocytes (%) (Auto) 27.5, Monocytes (%) (Auto) 7.9 H, Eosinophils (%) (Auto) 5.1 H, Basophils (%) ( Auto) 0.9, Neutrophils # (Auto) 5.1, Lymphocytes # (Auto) 2.5, Monocytes # (Auto ) 0.7, Eosinophils # (Auto) 0.5, Basophils # (Auto) 0.1 10/29/16 07:10 Calcium Level 8.7, Aspartate Amino Transf (AST/SGOT) 91 H, Alanine Aminotransferase (ALT/SGPT) 115 H, Alkaline Phosphatase 107, Total Bilirubin 0.8 , Total Protein 7.0, Albumin 3.5 Microbiology Microbiology 10/28/16 Urine Culture - Final, Complete Kalee Baker Oct 29, 2016 09:53
[2016-10-29] MEDS: IBUPROFEN 400 MG TAB PO PRN (16:24)
[2016-10-29] MEDS: SODIUM CHLORIDE NASAL 0.65% SPRAY BTL (OCEAN) PRN ×2 (16:24→20:47)
[2016-10-29 18:00] VITALS: BP 130/91
--- NOTE | 2016-10-29 18:55 | IPNPDOC ---
[facility] Progress Note Progress Note DATE OF SERVICE: 10/29/16 HISTORY: Patient is 51-year-old male who presented to the emergency room after consuming alcohol and experiencing suicidal ideation with plan to drive vehicle into a truck or shoot self. Patient reports improvement to mood and anxiety, today denies anxiety, rates depression 01/11 which she attributes to upcoming court case, denies suicidal and homicidal ideation, denies audiovisual hallucinations, denies urge to engage in self-injurious behavior. Patient denies symptoms of craving or withdrawal and informs service writer he slept better last night, is in agreement with continuation of Ambien taper. Patient reiterates he has taken trazodone in past, notes medication was effective at the 200 mg dose. Patient indicates Paxil and hydroxyzine remain helpful in reducing symptoms of anxiety and depression with good effect reported, denies medication side effects. Patient reiterates today he is now wanting to go to inpatient alcohol treatment, does not want to go as bed to bed transfer, is aware personnel coordinator will be meeting with him to complete referrals. Patient states appetite is stable, reports improvement to challenges related to concentration and focus, also reports improvement in energy level. Patient Denies physical pain at time of interaction and presents with no signs of acute distress. VITAL SIGNS: See below. NEW TEST RESULTS: Recent lab results indicate low RBC and AGR, and elevated MCH , MCV, [place] %, Eos %, glucose, AST, and ALT. PA is monitoring. PAST MEDICAL/SURGICAL HISTORY: Hypertension, asthma, hyperlipidemia, some hearing loss. Patient denies history of head injury or seizure. Labs on admission indicated elevated MCH, MCV, AST, ALT, glucose, and alkaline phosphatase, and low BUN and AGR. UDS at time of admission indicated ethyl alcohol elevated at 0.047 10/23/16 EKG SINUS RHYTHM WITH SINUS ARRHYTHMIA 10/26/16 right upper quadrant ultrasound with fatty infiltration 10/28/16 CT abdomen and pelvis - Hepatomegaly and hepatosteatosis without focal hepatic lesion, Colonic diverticula without acute diverticulitis, Mild symmetric and likely chronic perinephric stranding without hydroureteronephrosis or nephrolithiasis, Small fat containing left inguinal hernia. 10/29/16 urine culture - no growth CURRENT MEDICATIONS: See below. MENTAL STATUS EXAMINATION: Patient is a 51-year old male, who is alert, cooperative, makes adequate eye contact, exhibits improved personal hygiene, is dressed in own clothing, ambulates with steady gait, appears stated age. Has reduced tremor to hands, states has had X 4-5 months. Speech: Is normal, of normal rate, rhythm, volume, spontaneous, coherent Language skills are good Thought processes including: Linear, coherent. Thought content: Rational, logical Abstract reasoning, and computation: Appears within normal limits Description of associations: Intact Description of abnormal or psychotic thoughts: Patient denies suicidal or homicidal ideation, denies auditory or visual hallucinations, does not appear to be responding to internal stimuli, does not endorse bizarre or paranoid ideation, does not appear preoccupied with violence or obsessions Judgment: Fair, continues to improve Insight: Fair, continues to improve Orientation: Oriented x 3. Recent and remote memory: Intact. Attention span and concentration: Good. Language: Normal. Fund of knowledge: Adequate Mood: "I'm feeling a little better today I think, but I'm still really worried about losing everything and my court case." Patient appears less anxious anxious and depressed, no mood lability noted Affect: Constricted, no tearfulness today, brightens 2, expresses humor, congruent with mood DIAGNOSES: Major depressive disorder, recurrent moderate, alcohol use disorder, polysubstance use disorder, adjustment disorder, rule out substance-induced mood disorder ASSESSMENT: Patient continues to adjust to unit, is less isolative, and has been attending unit programming regularly, indicates he is benefiting from groups. Patient appears less anxious and depressed today, remains tense when discussing topic of DUI and upcoming court case, remains concerned about possibility of "losing everything." Patient indicates current medication regimen is effective and he denies medication side effects, remains in agreement with Ambien taper in preparation to attend inpatient alcohol rehabilitation. Patient remains anxious and depressed regarding waiting to find out if he is going to have a job or if he will lose his home, car, and other resources, indicates antidepressant is helpful in reducing aforementioned symptoms. Patient remains on standing hydroxyzine with good effect reported. Patient denies medication side effects, remains in agreement with Ambien taper with increase in trazodone which she indicates he has taken in the past with good effect. Patient denies current suicidal and homicidal ideation and verbalizes awareness of how to access supportive services on the unit if needed. Will monitor patient's response to medications and for side effects, and will evaluate patient's safety, resolution of suicidal ideation, and discharge readiness. Patient states when prepared for discharge he would like to first go home, and then go to inpatient alcohol rehabilitation, states he is also in agreement with case management services and follow-up with psychotherapy and medication management treatment. MANAGEMENT PLAN: Increase trazodone to 150 mg po hs PRN insomnia with plan to increase as tolerated by patient. Continue Paxil CR to 37.5 mg po q am. Continue Ambien 5 mg hs PRN insomnia with plan to discontinue. Continue hydroxyzine 25 mg QID with plan to change to PRN in preparation for discharge. Maintain safety precautions Patient to attend groups and participate in unit programming to develop coping strategies Engage patient in discharge planning process and arrange meeting with support system to ensure safe discharge planning when appropriate Patient to follow up with PCM upon discharge TIME SPENT: 35 minutes Vital Signs Vital Signs Date Time Temp Pulse Resp B/P (MAP) Pulse Ox O2 Delivery O2 Flow Rate FiO2 10/29/16 18:00 99.8 88 18 130/91 (104) Room Air 10/28/16 18:00 95 Laboratory Data 24H Labs Laboratory Tests 2 10/29/16 07:10: Anion Gap 6L, Glomerular Filtration Rate > 60.0, Blood Urea Nitrogen 9, Creatinine 1.13, Sodium Level 142, Potassium Level 4.1, Chloride Level 109H, Carbon Dioxide Level 27, Calcium Level 8.7, Aspartate Amino Transf (AST/SGOT) 91H, Alanine Aminotransferase (ALT/SGPT) 115H, Alkaline Phosphatase 107, Total Bilirubin 0.8, Total Protein 7.0, Albumin 3.5, Albumin/Globulin Ratio 1.00 CBC/BMP Laboratory Tests 10/29/16 07:10 Calcium Level 8.7, Aspartate Amino Transf (AST/SGOT) 91 H, Alanine Aminotransferase (ALT/SGPT) 115 H, Alkaline Phosphatase 107, Total Bilirubin 0.8 , Total Protein 7.0, Albumin 3.5 Current Medications Current Medications Al Hydrox/Mg Hydrox/Simethicone (Mylanta) 30 ml Q4HP PRN PO HEARTBURN/ INDIGESTION; Start 10/22/16 at 19:15; Stop 11/21/16 at 19:14 Albuterol Sulfate (Proventil, Ventolin Hfa) 2 puff Q4HP PRN INH SHORTNESS OF BREATH Last administered on 10/28/16t 20:40; Start 10/22/16 at 19:15; Stop 11/21 at 19:14 Clotrimazole (Lotrimin) apply to face daily as needed DAILYPRN TOP ; Start 10/23 at 17:00; Stop 10/23/16 at 17:02; Status DC Clotrimazole (Lotrimin) apply to face daily as needed DAILYPRN PRN TOP REDNESS/ IRRITATION Last administered on 10/28/16 20:40; Start 10/23/16 at 17:00; Stop 11/22/16 at 16:59 Folic Acid (Folic Acid) 1 mg DAILY PO Last administered on 10/29/16 08:15; Start 10/23/16 at 09:00; Stop 11/22/16 at 08:59 Home Med (Med Rec Complete!) ASDIRECTED XX ; Start 10/22/16 at 17:30; Stop at 17:30; Status DC Hydroxyzine HCl (Atarax) 25 mg BIDP PO ; Start 10/25/16 at 06:30; Stop 10/25/16 at 06:40; Status DC Hydroxyzine HCl (Atarax) 25 mg BIDP PRN PO ANXIETY/AGITATION Last administered on 10/25/16 10:35; Start 10/25/16 at 06:45; Stop 10/25/16 at 17:37; Status DC Hydroxyzine HCl (Atarax) 25 mg QID PO Last administered on 10/29/16 18:09; Start 10/25/16 at 17:00; Stop 11/24/16 at 16:59 Ibuprofen (Advil) 400 mg Q6HP PRN PO PAIN Last administered on 10/29/16 16:24 ; Start 10/22/16 at 19:15; Stop 11/21/16 at 19:14 Lidocaine (Lidoderm Patch) 1 patch DAILY TD ; Start 10/29/16 at 09:00; Stop at 08:59 Lorazepam (Ativan) 2 mg ASDIRECTED PRN PO SEE PROTOCOL Last administered on 11:25; Start 10/22/16 at 19:15; Stop 10/24/16 at 16:14; Status DC Magnesium Hydroxide (Milk Of Magnesia) 30 ml DAILYPRN PRN PO CONSTIPATION; Start 10/22/16 at 19:15; Stop 11/21/16 at 19:14 Multivitamins (Theragram-M) 1 tab DAILY PO Last administered on 10/29/16 08:15 ; Start 10/23/16 at 09:00; Stop 11/22/16 at 08:59 Nicotine (Nicoderm Cq 21mg) 1 patch DAILY TD Last administered on 10/29/16 08: 18; Start 10/23/16 at 09:00; Stop 11/22/16 at 08:59 Non-Formulary Medication ( See Comment Field Below ) REMOVE LIDODERM PATCH DAILY@21 XX ; Start 10/29/16 at 21:00; Stop 11/28/16 at 20:59 Olmesartan (Benicar) 20 mg DAILY PO Last administered on 10/29/16 08:15; Start 10/23/16 at 09:00; Stop 11/22/16 at 08:59 Paroxetine HCl (PAXil CR) 12.5 mg QAM PO Last administered on 10/24/16 08:41; Start 10/24/16 at 09:00; Stop 10/24/16 at 16:14; Status DC Paroxetine HCl (PAXil CR) 25 mg DAILY PO Last administered on 10/27/16 08:12; Start 10/25/16 at 09:00; Stop 10/27/16 at 18:22; Status DC Paroxetine HCl (PAXil CR) 37.5 mg DAILY PO Last administered on 10/29/16 08:16 ; Start 10/28/16 at 09:00; Stop 11/27/16 at 08:59 Sodium Chloride ([place] Nasal [place]) 2 spray BIDP NA ; Start 10/23/16 at 17:00; Stop 10/23/16 at 17:02; Status DC Sodium Chloride ([place] Nasal [place]) 2 spray BIDP PRN NA NASAL CONGESTION Last administered on 10/29/16 16:24; Start 10/23/16 at 17:00; Stop 11/22/16 at 16:59 Thiamine HCl (Thiamine HCl) 100 mg BID PO Last administered on 10/25/16 08:41 ; Start 10/22/16 at 21:00; Stop 10/25/16 at 09:01; Status DC Trazodone HCl (Desyrel) 75 mg QHSP PRN PO INSOMNIA; Start 10/27/16 at 18:30; Stop 10/27/16 at 18:30; Status DC Trazodone HCl (Desyrel) 75 mg QHSP PRN PO INSOMNIA Last administered on 22:06; Start 10/27/16 at 21:00; Stop 10/28/16 at 14:34; Status DC Trazodone HCl (Desyrel) 100 mg QHSP PRN PO INSOMNIA Last administered on 23:03; Start 10/28/16 at 14:30; Stop 11/27/16 at 14:29 Zolpidem Tartrate (Ambien) 5 mg QHS PO Last administered on 10/28/16 23:01; Start 10/27/16 at 21:00; Stop 11/03/16 at 20:59 Zolpidem Tartrate (Ambien) 10 mg QHS PO Last administered on 10/26/16 23:18; Start 10/22/16 at 21:00; Stop 10/27/16 at 18:22; Status DC Allergies Coded Allergies: No Known Drug Allergy (Verified Allergy, Unknown, 10/07/12) Jocelynn Centeno Oct 29, 2016 18:55
[2016-10-29] MEDS ORDERED: traZODone 100 MG TAB PO PRN (19:15)
--- NOTE | 2016-10-29 20:47 | REP ---
Clinical: thoracic pain. Technique: AP, lateral, and swimmers views. Findings: Alignment and kyphosis is maintained. Vertebral bodies intact. No acute fracture / compression injury or subluxation. No degenerative changes. Paravertebral soft tissues are normal. Impression: Normal thoracic spine series. Signed by Marcelo Chambers MD 10/29/2016 05:36 P
[2016-10-29] MEDS: ALBUTEROL 90 MCG/ACT 8GM HFA INHALER INH PRN (20:48)
--- NOTE | 2016-10-29 20:48 | REP ---
Clinical: Back pain. Technique: AP, lateral, bilateral oblique, and coned-down views. Findings: Alignment and lordosis is essentially normal. The vertebral bodies including transverse process and spinous processes are intact and normal. There is no evidence for acute fracture / compression injury or subluxation. No evidence for spondylolysis or spondylolisthesis. No significant degenerative change is noted. Impression: Normal lumbosacral spine radiograph series. Signed by Marcelo Chambers MD 10/29/2016 05:37 P
[2016-10-29] MEDS ORDERED: **NOTE PATIENT COMMENT** MISC XX SCH (21:00)
[2016-10-29] MEDS: zolPIDEM TARTRATE 10MG TAB PO SCH (22:39)
[2016-10-29] MEDS: LIDOCAINE 5% (LIDODERM) PATCH TD SCH (22:42)
[2016-10-30 07:18] VITALS: BP 139/82
[2016-10-30 07:52] LABS: ALBUMIN 3.5 GM/DL (3.2-5.2); ALKALINE PHOSPHATASE 112 U/L (45-117); ALT/SGPT 113 U/L (12-78); ANION GAP 9 MEQ/L (8-16); AST/SGOT 87 U/L (15-37); BILIRUBIN,TOTAL 0.7 MG/DL (0.2-1.0); BLOOD UREA NITROGEN 9 MG/DL (7-18); CALCIUM LEVEL 8.8 MG/DL (8.5-10.1); CARBON DIOXIDE LEVEL 27 MEQ/L (21-32); CHLORIDE LEVEL 108 MEQ/L (98-107); CREATININE FOR GFR 1.15 MG/DL (0.70-1.30); GLOMERULAR FILTRATION RATE > 60.0 (>56); GLUCOSE, FASTING 107 MG/DL (70-105); POTASSIUM SERUM 4.5 MEQ/L (3.5-5.1); SODIUM LEVEL 144 MEQ/L (136-145)
[2016-10-30] MEDS: FOLIC ACID 1 MG TAB PO SCH (08:24)
[2016-10-30] MEDS: MULTIVITAMINS/MINERALS THERAP 1 TAB PO SCH (08:24)
[2016-10-30] MEDS: PARoxetine 12.5 MG **CR** TAB PO SCH (08:24)
[2016-10-30] MEDS: hydrOXYzine 25 MG TAB PO SCH ×4 (08:24→21:28)
[2016-10-30] MEDS: NICOTINE 21MG/24HR 1 EA TRANSDERMAL TD SCH (08:24)
[2016-10-30] MEDS: SODIUM CHLORIDE NASAL 0.65% SPRAY BTL (OCEAN) PRN ×2 (08:24→19:15)
[2016-10-30] MEDS: CLOTRIMAZOLE 1% TOPICAL CREAM 30GM TOP PRN (08:25)
[2016-10-30] MEDS: OLMESARTAN MEDOXOMIL 20 MG TAB (BENICAR) PO SCH (08:25)
[2016-10-30] MEDS: **NOTE PATIENT COMMENT** MISC XX SCH (08:27)
[2016-10-30 11:38] VITALS: BP 134/93
[2016-10-30 18:00] VITALS: BP 133/69
[2016-10-30] MEDS: IBUPROFEN 400 MG TAB PO PRN (19:15)
--- NOTE | 2016-10-30 20:35 | IPNPDOC ---
[facility] Progress Note Progress Note DATE OF SERVICE: 10/30/16 HISTORY: Patient is 51-year-old male who presented to the emergency room after consuming alcohol and experiencing suicidal ideation with plan to drive vehicle into a truck or shoot self. Patient reports improvement to mood and anxiety, today denies anxiety, reports depression is "better, I've been too busy to be depressed, " rates 5/10 and continues to attribute symptoms to upcoming DWI court case. Patient denies suicidal and homicidal ideation, denies audiovisual hallucinations, denies urge to engage in self-injurious behavior. Patient denies symptoms of craving or withdrawal and informs specifications writer he slept "pretty good" last night, contrary to EMR. Patient remains in agreement with Ambien taper, is aware trazodone dose will be increased tonight, is also in agreement with changing standing hydroxyzine to PRN. Patient indicates Paxil and hydroxyzine remain helpful in reducing symptoms of anxiety and depression, denies medication side effects. Patient was informed by inventory planner today that [facility] would have a bed available to him for a bed to bed transfer on Wednesday, has accepted referral but declined bed to bed transfer indicating he has personal affairs he feels he needs to get in order prior to entering rehabilitation. Patient denies challenges with appetite, reports improvement to challenges related to concentration and focus, also reports improvement in energy level. Patient presents with no signs of acute distress. VITAL SIGNS: See below. NEW TEST RESULTS: Recent lab results indicate low RBC and AGR, and elevated MCH , MCV, [place] %, Eos %, glucose, AST, and ALT. PA is monitoring. PAST MEDICAL/SURGICAL HISTORY: Hypertension, asthma, hyperlipidemia, some hearing loss. Patient denies history of head injury or seizure. Labs on admission indicated elevated MCH, MCV, AST, ALT, glucose, and alkaline phosphatase, and low BUN and AGR. UDS at time of admission indicated ethyl alcohol elevated at 0.047 10/23/16 EKG SINUS RHYTHM WITH SINUS ARRHYTHMIA 10/26/16 right upper quadrant ultrasound with fatty infiltration 10/28/16 CT abdomen and pelvis - Hepatomegaly and hepatosteatosis without focal hepatic lesion, Colonic diverticula without acute diverticulitis, Mild symmetric and likely chronic perinephric stranding without hydroureteronephrosis or nephrolithiasis, Small fat containing left inguinal hernia. 4/27/17 urine culture - no growth CURRENT MEDICATIONS: See below. MENTAL STATUS EXAMINATION: Patient is a 51-year old male, who is alert, cooperative, makes good eye contact , exhibits improved personal hygiene, is dressed in own clothing, ambulates with steady gait, appears stated age, exhibits reduced tremor to hands which he has indicated he has been experiencing for past 4-5 months. Speech: Is normal, of normal rate, rhythm, volume, spontaneous, coherent Language skills are good Thought processes including: Linear, coherent. Thought content: Rational, logical Abstract reasoning, and computation: Appears within normal limits Description of associations: Intact Description of abnormal or psychotic thoughts: Patient denies suicidal or homicidal ideation, denies auditory or visual hallucinations, does not appear to be responding to internal stimuli, does not endorse bizarre or paranoid ideation, does not appear preoccupied with violence or obsessions Judgment: Fair, continues to improve Insight: Fair, continues to improve Orientation: Oriented x 3. Recent and remote memory: Intact. Attention span and concentration: Good. Language: Normal. Fund of knowledge: Adequate Mood: "I'm feeling better, still worried about losing everything, but a little more positive." Patient appears less anxious anxious and depressed today, no mood lability noted Affect: Mild constriction, brightens frequently and appropriately, expresses humor, congruent with mood DIAGNOSES: Major depressive disorder, recurrent moderate, alcohol use disorder, polysubstance use disorder, adjustment disorder, rule out substance-induced mood disorder ASSESSMENT: Patient continues to adjust to unit, is now very visible, socializing with select peers, and is participating well in unit programming, reiterates today he finds programming beneficial. Patient appears less anxious and depressed today, remains tense when discussing topic of DWI and upcoming court case also remains concerned about possibility of losing job and possessions. Patient indicates current medication regimen remains effective and denies medication side effects, remains in agreement with Ambien taper in preparation to attend inpatient alcohol rehabilitation and change of hydroxyzine to PRN. Patient denies medication side effects. Patient denies current suicidal and homicidal ideation and verbalizes awareness of how to access supportive services on the unit if needed. Patient is aware discharge is being considered for Wednesday, will monitor patient's response to medications and for side effects, and will evaluate patient's safety, stabilization on medications, and discharge readiness. Patient has declined bed to bed transfer to [facility], reiterates today he wants to discharge to home first to attend to personal affairs, then enter inpatient alcohol rehabilitation treatment, also remains in agreement with case management services and follow-up with psychotherapy and medication management treatment. MANAGEMENT PLAN: Increase trazodone to 200 mg po hs PRN insomnia. Continue Paxil CR to 37.5 mg po q am. Discontinue Ambien 5 mg hs PRN insomnia. Change hydroxyzine 25 mg to QID PRN Maintain safety precautions Patient to attend groups and participate in unit programming to develop coping strategies Engage patient in discharge planning process and arrange meeting with support system to ensure safe discharge planning when appropriate Patient to follow up with PCM upon discharge TIME SPENT: 35 minutes Vital Signs Vital Signs Date Time Temp Pulse Resp B/P (MAP) Pulse Ox O2 Delivery O2 Flow Rate FiO2 10/30/16 18:00 98.8 80 16 133/69 (90) 10/29/16 18:00 Room Air 10/28/16 18:00 95 Laboratory Data 24H Labs Laboratory Tests 2 10/30/16 07:14: Anion Gap 9, Glomerular Filtration Rate > 60.0, Blood Urea Nitrogen 9, Creatinine 1.15, Sodium Level 144, Potassium Level 4.5, Chloride Level 108H, Carbon Dioxide Level 27, Calcium Level 8.8, Aspartate Amino Transf (AST/SGOT) 87H, Alanine Aminotransferase (ALT/SGPT) 113H, Alkaline Phosphatase 112, Total Bilirubin 0.7, Total Protein 7.0, Albumin 3.5, Albumin/Globulin Ratio 1.00 CBC/BMP Laboratory Tests 10/30/16 07:14 Calcium Level 8.8, Aspartate Amino Transf (AST/SGOT) 87 H, Alanine Aminotransferase (ALT/SGPT) 113 H, Alkaline Phosphatase 112, Total Bilirubin 0.7 , Total Protein 7.0, Albumin 3.5 Current Medications Current Medications Al Hydrox/Mg Hydrox/Simethicone (Mylanta) 30 ml Q4HP PRN PO HEARTBURN/ INDIGESTION; Start 10/22/16 at 19:15; Stop 11/21/16 at 19:14 Albuterol Sulfate (Proventil, Ventolin Hfa) 2 puff Q4HP PRN INH SHORTNESS OF BREATH Last administered on 10/29/16t 20:48; Start 10/22/16 at 19:15; Stop 11/21 at 19:14 Clotrimazole (Lotrimin) apply to face daily as needed DAILYPRN TOP ; Start 10/23 at 17:00; Stop 10/23/16 at 17:02; Status DC Clotrimazole (Lotrimin) apply to face daily as needed DAILYPRN PRN TOP REDNESS/ IRRITATION Last administered on 10/30/16 08:25; Start 10/23/16 at 17:00; Stop 11/22/16 at 16:59 Folic Acid (Folic Acid) 1 mg DAILY PO Last administered on 10/30/16 08:24; Start 10/23/16 at 09:00; Stop 11/22/16 at 08:59 Home Med (Med Rec Complete!) ASDIRECTED XX ; Start 10/22/16 at 17:30; Stop at 17:30; Status DC Hydroxyzine HCl (Atarax) 25 mg BIDP PO ; Start 10/25/16 at 06:30; Stop 10/25/16 at 06:40; Status DC Hydroxyzine HCl (Atarax) 25 mg BIDP PRN PO ANXIETY/AGITATION Last administered on 10/25/16 10:35; Start 10/25/16 at 06:45; Stop 10/25/16 at 17:37; Status DC Hydroxyzine HCl (Atarax) 25 mg QID PO Last administered on 10/30/16 16:25; Start 10/25/16 at 17:00; Stop 10/30/16 at 21:00 Hydroxyzine HCl (Atarax) 25 mg QIDP PRN PO ANXIETY; Start 10/31/16 at 09:00; Stop 11/24/16 at 16:59; Status UNV Ibuprofen (Advil) 400 mg Q6HP PRN PO PAIN Last administered on 10/30/16 19:15 ; Start 10/22/16 at 19:15; Stop 11/21/16 at 19:14 Lidocaine (Lidoderm Patch) 1 patch DAILY TD ; Start 10/29/16 at 09:00; Stop at 20:56; Status DC Lidocaine (Lidoderm Patch) 1 patch QHS TD Last administered on 10/29/16 22:42 ; Start 10/29/16 at 21:00; Stop 11/28/16 at 08:59 Lorazepam (Ativan) 2 mg ASDIRECTED PRN PO SEE PROTOCOL Last administered on 11:25; Start 10/22/16 at 19:15; Stop 10/24/16 at 16:14; Status DC Magnesium Hydroxide (Milk Of Magnesia) 30 ml DAILYPRN PRN PO CONSTIPATION; Start 10/22/16 at 19:15; Stop 11/21/16 at 19:14 Multivitamins (Theragram-M) 1 tab DAILY PO Last administered on 10/30/16 08:24 ; Start 10/23/16 at 09:00; Stop 11/22/16 at 08:59 Nicotine (Nicoderm Cq 21mg) 1 patch DAILY TD Last administered on 10/30/16 08: 24; Start 10/23/16 at 09:00; Stop 11/22/16 at 08:59 Non-Formulary Medication ( See Comment Field Below ) REMOVE LIDODERM PATCH DAILY@0900 XX Last administered on 10/30/16 08:27; Start 10/30/16 at 09:00; Stop 11/28/16 at 20:59 Non-Formulary Medication ( See Comment Field Below ) REMOVE LIDODERM PATCH DAILY@21 XX ; Start 10/29/16 at 21:00; Stop 10/29/16 at 21:00; Status DC Olmesartan (Benicar) 20 mg DAILY PO Last administered on 10/30/16 08:25; Start 10/23/16 at 09:00; Stop 11/22/16 at 08:59 Paroxetine HCl (PAXil CR) 12.5 mg QAM PO Last administered on 10/24/16 08:41; Start 10/24/16 at 09:00; Stop 10/24/16 at 16:14; Status DC Paroxetine HCl (PAXil CR) 25 mg DAILY PO Last administered on 10/27/16 08:12; Start 10/25/16 at 09:00; Stop 10/27/16 at 18:22; Status DC Paroxetine HCl (PAXil CR) 37.5 mg DAILY PO Last administered on 10/30/16 08:24 ; Start 10/28/16 at 09:00; Stop 11/27/16 at 08:59 Sodium Chloride ([place] Nasal [place]) 2 spray BIDP NA ; Start 10/23/16 at 17:00; Stop 10/23/16 at 17:02; Status DC Sodium Chloride ([place] Nasal [place]) 2 spray BIDP PRN NA NASAL CONGESTION Last administered on 10/30/16 19:15; Start 10/23/16 at 17:00; Stop 11/22/16 at 16:59 Thiamine HCl (Thiamine HCl) 100 mg BID PO Last administered on 10/25/16 08:41 ; Start 10/22/16 at 21:00; Stop 10/25/16 at 09:01; Status DC Trazodone HCl (Desyrel) 75 mg QHSP PRN PO INSOMNIA; Start 10/27/16 at 18:30; Stop 10/27/16 at 18:30; Status DC Trazodone HCl (Desyrel) 75 mg QHSP PRN PO INSOMNIA Last administered on 22:06; Start 10/27/16 at 21:00; Stop 10/28/16 at 14:34; Status DC Trazodone HCl (Desyrel) 100 mg QHSP PRN PO INSOMNIA Last administered on 23:03; Start 10/28/16 at 14:30; Stop 10/29/16 at 19:08; Status DC Trazodone HCl (Desyrel) 150 mg QHSP PRN PO INSOMNIA Last administered on 22:40; Start 10/29/16 at 19:15; Stop 10/30/16 at 20:12; Status DC Trazodone HCl (Desyrel) 200 mg QHSP PRN PO INSOMNIA; Start 10/30/16 at 20:15; Stop 11/29/16 at 20:14; Status UNV Zolpidem Tartrate (Ambien) 5 mg QHS PO Last administered on 10/29/16 22:39; Start 10/27/16 at 21:00; Stop 10/30/16 at 20:12; Status DC Zolpidem Tartrate (Ambien) 10 mg QHS PO Last administered on 10/26/16 23:18; Start 10/22/16 at 21:00; Stop 10/27/16 at 18:22; Status DC Allergies Coded Allergies: No Known Drug Allergy (Verified Allergy, Unknown, 10/07/12) Jocelynn Centeno Oct 30, 2016 20:35
[2016-10-30 21:00] VITALS: BP 133/69
[2016-10-30] MEDS: ALBUTEROL 90 MCG/ACT 8GM HFA INHALER INH PRN (21:28)
[2016-10-30] MEDS: LIDOCAINE 5% (LIDODERM) PATCH TD SCH (21:30)
[2016-10-30] MEDS: traZODone 100 MG TAB PO PRN (23:17)
[2016-10-31 06:48] VITALS: BP 136/74
[2016-10-31] MEDS: NICOTINE 21MG/24HR 1 EA TRANSDERMAL TD SCH (08:37)
[2016-10-31] MEDS: PARoxetine 12.5 MG **CR** TAB PO SCH (08:38)
[2016-10-31] MEDS: **NOTE PATIENT COMMENT** MISC XX SCH (08:38)
[2016-10-31] MEDS: MULTIVITAMINS/MINERALS THERAP 1 TAB PO SCH (08:38)
[2016-10-31] MEDS: hydrOXYzine 25 MG TAB PO PRN ×3 (08:38→21:58)
[2016-10-31] MEDS: OLMESARTAN MEDOXOMIL 20 MG TAB (BENICAR) PO SCH (08:38)
[2016-10-31] MEDS: FOLIC ACID 1 MG TAB PO SCH (08:38)
[2016-10-31 12:00] VITALS: BP 144/89
[2016-10-31 18:00] VITALS: BP 139/90
[2016-10-31] MEDS: LIDOCAINE 5% (LIDODERM) PATCH TD SCH (21:58)
[2016-10-31] MEDS: SODIUM CHLORIDE NASAL 0.65% SPRAY BTL (OCEAN) PRN (21:58)
[2016-10-31] MEDS: ALBUTEROL 90 MCG/ACT 8GM HFA INHALER INH PRN (21:58)
[2016-10-31 22:00] VITALS: BP 126/78
[2016-10-31] MEDS: traZODone 100 MG TAB PO PRN (23:27)
[2016-11-01 07:00] VITALS: BP 151/71
[2016-11-01] MEDS: FOLIC ACID 1 MG TAB PO SCH (07:57)
[2016-11-01] MEDS: MULTIVITAMINS/MINERALS THERAP 1 TAB PO SCH (07:57)
[2016-11-01] MEDS: PARoxetine 12.5 MG **CR** TAB PO SCH (07:57)
[2016-11-01] MEDS: OLMESARTAN MEDOXOMIL 20 MG TAB (BENICAR) PO SCH (07:58)
[2016-11-01] MEDS: SODIUM CHLORIDE NASAL 0.65% SPRAY BTL (OCEAN) PRN ×2 (07:58→21:48)
[2016-11-01] MEDS: NICOTINE 21MG/24HR 1 EA TRANSDERMAL TD SCH (07:58)
[2016-11-01] MEDS: ALBUTEROL 90 MCG/ACT 8GM HFA INHALER INH PRN ×4 (07:59→21:49)
[2016-11-01] MEDS: **NOTE PATIENT COMMENT** MISC XX SCH (08:00)
[2016-11-01] MEDS: CLOTRIMAZOLE 1% TOPICAL CREAM 30GM TOP PRN (10:02)
[2016-11-01] MEDS: hydrOXYzine 25 MG TAB PO PRN ×2 (10:02→21:49)
[2016-11-01 12:30] VITALS: BP 134/85
[2016-11-01] MEDS: IBUPROFEN 400 MG TAB PO PRN (15:42)
[2016-11-01 18:00] VITALS: BP 142/83
[2016-11-01] MEDS: LIDOCAINE 5% (LIDODERM) PATCH TD SCH (21:48)
[2016-11-01] MEDS: traZODone 100 MG TAB PO PRN (22:14)
[2016-11-02 06:46] VITALS: BP 119/98
[2016-11-02] MEDS: ALBUTEROL 90 MCG/ACT 8GM HFA INHALER INH PRN ×3 (08:40→20:28)
[2016-11-02] MEDS: hydrOXYzine 25 MG TAB PO PRN ×3 (08:40→20:28)
[2016-11-02] MEDS: PARoxetine 12.5 MG **CR** TAB PO SCH (08:40)
[2016-11-02] MEDS: MULTIVITAMINS/MINERALS THERAP 1 TAB PO SCH (08:40)
[2016-11-02] MEDS: FOLIC ACID 1 MG TAB PO SCH (08:40)
[2016-11-02] MEDS: NICOTINE 21MG/24HR 1 EA TRANSDERMAL TD SCH (08:41)
[2016-11-02] MEDS: CLOTRIMAZOLE 1% TOPICAL CREAM 30GM TOP PRN (08:41)
[2016-11-02] MEDS: OLMESARTAN MEDOXOMIL 20 MG TAB (BENICAR) PO SCH (08:44)
[2016-11-02] MEDS: **NOTE PATIENT COMMENT** MISC XX SCH (08:45)
[2016-11-02] MEDS ORDERED: PARO12.5 PO (15:27)
[2016-11-02] MEDS ORDERED: HYDR25T PO (15:27)
[2016-11-02] MEDS ORDERED: TRAZ10TA PO (15:27)
--- NOTE | 2016-11-02 16:31 | IPNPDOC ---
[facility] Progress Note Progress Note DATE OF SERVICE: 11/02/16 HISTORY: Patient is 51-year-old male who presented to the emergency room after consuming alcohol and experiencing suicidal ideation with plan to drive vehicle into a truck or shoot self. Patient reports experiencing high degree of anxiety today related to concerns that he will consume alcohol if he does not go to rehabilitation as a bed to bed transfer. Patient indicates he feels "torn about all the things I have to do try to sell my bike and not loose my car or my job, " and going directly to rehabilitation. When asked of experiencing suicidal ideation patient states, "it's been a really long weekend and I don't know what to do and I don't feel safe to go home, I do have thoughts of hurting myself if I'm at home." Patient denies homicidal ideation, denies audiovisual hallucinations, denies urge to engage in self-injurious behavior. Patient rates current anxiety level as 10/10, depression 8/10 which he attributes to concerns related to discharge to home prior to going to rehabilitation. Patient indicates she continues to sleep "better," denies nightmares symptoms, expresses relief to be completed with Ambien taper and on hydroxyzine PRN. Patient indicates Paxil and hydroxyzine remain helpful in reducing symptoms of anxiety and depression, denies medication side effects. Patient was informed by systems planner today that [facility] will have a bed available for him tomorrow morning and he is accepted at the bed transfer. Patient denies challenges with appetite, reports improvement to challenges related to concentration and focus, and indicates energy level remains stable. VITAL SIGNS: See below. NEW TEST RESULTS: Recent lab results indicate low RBC and AGR, and elevated MCH , MCV, [place] %, Eos %, glucose, AST, and ALT. PA is monitoring. PAST MEDICAL/SURGICAL HISTORY: Hypertension, asthma, hyperlipidemia, some hearing loss. Patient denies history of head injury or seizure. Labs on admission indicated elevated MCH, MCV, AST, ALT, glucose, and alkaline phosphatase, and low BUN and AGR. UDS at time of admission indicated ethyl alcohol elevated at 0.047 10/23/16 EKG SINUS RHYTHM WITH SINUS ARRHYTHMIA 10/26/16 right upper quadrant ultrasound with fatty infiltration 10/28/16 CT abdomen and pelvis - Hepatomegaly and hepatosteatosis without focal hepatic lesion, Colonic diverticula without acute diverticulitis, Mild symmetric and likely chronic perinephric stranding without hydroureteronephrosis or nephrolithiasis, Small fat containing left inguinal hernia. 10/29/16 urine culture - no growth CURRENT MEDICATIONS: See below. MENTAL STATUS EXAMINATION: Patient is a 51-year old male, who is alert, cooperative, makes good eye contact , exhibits improved personal hygiene, is dressed in own clothing, ambulates with steady gait, appears stated age, exhibits reduced tremor to hands which he has indicated he has been experiencing for past 4-5 months. Speech: Is normal, of normal rate, rhythm, volume, spontaneous, coherent Language skills are good Thought processes including: Linear, coherent. Thought content: Rational, logical Abstract reasoning, and computation: Appears within normal limits Description of associations: Intact Description of abnormal or psychotic thoughts: Patient denies suicidal or homicidal ideation, denies auditory or visual hallucinations, does not appear to be responding to internal stimuli, does not endorse bizarre or paranoid ideation, does not appear preoccupied with violence or obsessions Judgment: Adequate, continues to improve Insight: Fair, continues to improve Orientation: Oriented x 3. Recent and remote memory: Intact. Attention span and concentration: Good. Language: Normal. Fund of knowledge: Adequate Mood: "I'm worried that if I go home I'm in a drink and get really depressed and I might to some stupid." Patient appears depressed and anxious, no mood lability noted Affect: Blunted, no brightening today, congruent with mood DIAGNOSES: Major depressive disorder, recurrent moderate, alcohol use disorder, polysubstance use disorder, adjustment disorder, rule out substance-induced mood disorder ASSESSMENT: Patient continues to adjust to unit, remains visible, socializing with select peers, and is participating well in unit programming, reiterates today he finds programming benficial. Patient appears more depressed and anxious today, remains tense when discussing topic of DWI and upcoming court case also remains concerned about possibility of losing job and possessions, indicates likelihood of relapse were he to discharge to home. Patient indicates current medication regimen remains effective and denies medication side effects , has successfully completed Ambien taper in preparation to attend inpatient alcohol rehabilitation and change of hydroxyzine to PRN. Patient denies medication side effects. Patient denies current homicidal ideation and verbalizes awareness of how to access supportive services on the unit if needed. Patient is aware discharge is being considered for Wednesday, will monitor patient's response to medications and for side effects, and will evaluate patient's safety, stabilization on medications, and discharge readiness. Patient is today requesting bed to bed transfer to [facility], no longer wants to discharge to home first due to concerns about relapse and safety, is aware he will be transferring to [facility] tomorrow morning as a bed bed transfer, also remains in agreement with case management services and follow-up with psychotherapy and medication management treatment. MANAGEMENT PLAN: Continue trazodone 200 mg po hs PRN insomnia, Paxil CR to 37.5 mg po q am, and hydroxyzine 25 mg to QID PRN Maintain safety precautions Patient to attend groups and participate in unit programming to develop coping strategies Engage patient in discharge planning process and arrange meeting with support system to ensure safe discharge planning when appropriate Patient to follow up with PCM upon discharge TIME SPENT: 35 minutes Vital Signs Vital Signs Date Time Temp Pulse Resp B/P (MAP) Pulse Ox O2 Delivery O2 Flow Rate FiO2 11/02/16 08:44 119/98 11/02/16 06:46 95.2 64 16 11/01/16 12:30 94 Room Air Current Medications Current Medications Al Hydrox/Mg Hydrox/Simethicone (Mylanta) 30 ml Q4HP PRN PO HEARTBURN/ INDIGESTION; Start 10/22/16 at 19:15; Stop 11/21/16 at 19:14 Albuterol Sulfate (Proventil, Ventolin Hfa) 2 puff Q4HP PRN INH SHORTNESS OF BREATH Last administered on 11/02/16 15:33; Start 10/22/16 at 19:15; Stop at 19:14 Clotrimazole (Lotrimin) apply to face daily as needed DAILYPRN TOP ; Start 10/23 at 17:00; Stop 10/23/16 at 17:02; Status DC Clotrimazole (Lotrimin) apply to face daily as needed DAILYPRN PRN TOP REDNESS/ IRRITATION Last administered on 11/02/16 08:41; Start 10/23/16 at 17:00; Stop at 16:59 Folic Acid (Folic Acid) 1 mg DAILY PO Last administered on 11/02/16 08:40; Start 10/23/16 at 09:00; Stop 11/22/16 at 08:59 Home Med (Med Rec Complete!) ASDIRECTED XX ; Start 10/22/16 at 17:30; Stop at 17:30; Status DC Hydroxyzine HCl (Atarax) 25 mg BIDP PO ; Start 10/25/16 at 06:30; Stop 10/25/16 at 06:40; Status DC Hydroxyzine HCl (Atarax) 25 mg BIDP PRN PO ANXIETY/AGITATION Last administered on 10/25/16 10:35; Start 10/25/16 at 06:45; Stop 10/25/16 at 17:37; Status DC Hydroxyzine HCl (Atarax) 25 mg QID PO Last administered on 10/30/16 21:28; Start 10/25/16 at 17:00; Stop 10/30/16 at 21:00; Status DC Hydroxyzine HCl (Atarax) 25 mg QIDP PRN PO ANXIETY Last administered on 13:13; Start 10/31/16 at 09:00; Stop 11/24/16 at 16:59 Ibuprofen (Advil) 400 mg Q6HP PRN PO PAIN Last administered on 11/01/16 15:42 ; Start 10/22/16 at 19:15; Stop 11/21/16 at 19:14 Lidocaine (Lidoderm Patch) 1 patch DAILY TD ; Start 10/29/16 at 09:00; Stop at 20:56; Status DC Lidocaine (Lidoderm Patch) 1 patch QHS TD Last administered on 11/01/16 21:48 ; Start 10/29/16 at 21:00; Stop 11/28/16 at 08:59 Lorazepam (Ativan) 2 mg ASDIRECTED PRN PO SEE PROTOCOL Last administered on 11:25; Start 10/22/16 at 19:15; Stop 10/24/16 at 16:14; Status DC Magnesium Hydroxide (Milk Of Magnesia) 30 ml DAILYPRN PRN PO CONSTIPATION; Start 10/22/16 at 19:15; Stop 11/21/16 at 19:14 Multivitamins (Theragram-M) 1 tab DAILY PO Last administered on 11/02/16 08:40 ; Start 10/23/16 at 09:00; Stop 11/22/16 at 08:59 Nicotine (Nicoderm Cq 21mg) 1 patch DAILY TD Last administered on 11/02/16 08: 41; Start 10/23/16 at 09:00; Stop 11/22/16 at 08:59 Non-Formulary Medication ( See Comment Field Below ) REMOVE LIDODERM PATCH DAILY@0900 XX Last administered on 11/02/16 08:45; Start 10/30/16 at 09:00; Stop 11/28/16 at 20:59 Non-Formulary Medication ( See Comment Field Below ) REMOVE LIDODERM PATCH DAILY@21 XX ; Start 10/29/16 at 21:00; Stop 10/29/16 at 21:00; Status DC Olmesartan (Benicar) 20 mg DAILY PO Last administered on 11/02/16 08:44; Start 10/23/16 at 09:00; Stop 11/22/16 at 08:59 Paroxetine HCl (PAXil CR) 12.5 mg QAM PO Last administered on 10/24/16 08:41; Start 10/24/16 at 09:00; Stop 10/24/16 at 16:14; Status DC Paroxetine HCl (PAXil CR) 25 mg DAILY PO Last administered on 10/27/16 08:12; Start 10/25/16 at 09:00; Stop 10/27/16 at 18:22; Status DC Paroxetine HCl (PAXil CR) 37.5 mg DAILY PO Last administered on 11/02/16 08:40 ; Start 10/28/16 at 09:00; Stop 11/27/16 at 08:59 Sodium Chloride ([place] Nasal [place]) 2 spray BIDP NA ; Start 10/23/16 at 17:00; Stop 10/23/16 at 17:02; Status DC Sodium Chloride ([place] Nasal [place]) 2 spray BIDP PRN NA NASAL CONGESTION Last administered on 11/01/16 21:48; Start 10/23/16 at 17:00; Stop 11/22/16 at 16:59 Thiamine HCl (Thiamine HCl) 100 mg BID PO Last administered on 10/25/16 08:41 ; Start 10/22/16 at 21:00; Stop 10/25/16 at 09:01; Status DC Trazodone HCl (Desyrel) 75 mg QHSP PRN PO INSOMNIA; Start 10/27/16 at 18:30; Stop 10/27/16 at 18:30; Status DC Trazodone HCl (Desyrel) 75 mg QHSP PRN PO INSOMNIA Last administered on 22:06; Start 10/27/16 at 21:00; Stop 10/28/16 at 14:34; Status DC Trazodone HCl (Desyrel) 100 mg QHSP PRN PO INSOMNIA Last administered on 23:03; Start 10/28/16 at 14:30; Stop 10/29/16 at 19:08; Status DC Trazodone HCl (Desyrel) 150 mg QHSP PRN PO INSOMNIA Last administered on 22:40; Start 10/29/16 at 19:15; Stop 10/30/16 at 20:12; Status DC Trazodone HCl (Desyrel) 200 mg QHSP PRN PO INSOMNIA Last administered on 22:14; Start 10/30/16 at 20:15; Stop 11/29/16 at 20:14 Zolpidem Tartrate (Ambien) 5 mg QHS PO Last administered on 10/29/16 22:39; Start 10/27/16 at 21:00; Stop 10/30/16 at 20:12; Status DC Zolpidem Tartrate (Ambien) 10 mg QHS PO Last administered on 10/26/16 23:18; Start 10/22/16 at 21:00; Stop 10/27/16 at 18:22; Status DC Allergies Coded Allergies: No Known Drug Allergy (Verified Allergy, Unknown, 10/07/12) Jocelynn Centeno November 02, 2016 16:31
[2016-11-02] MEDS: SODIUM CHLORIDE NASAL 0.65% SPRAY BTL (OCEAN) PRN ×2 (17:09→22:15)
[2016-11-02] MEDS: IBUPROFEN 400 MG TAB PO PRN (17:10)
[2016-11-02 18:00] VITALS: BP 113/73
[2016-11-02] MEDS: LIDOCAINE 5% (LIDODERM) PATCH TD SCH (20:29)
[2016-11-02] MEDS: traZODone 100 MG TAB PO PRN (22:17)
[2016-11-03 06:26] VITALS: BP 124/84
[2016-11-03] MEDS: ALBUTEROL 90 MCG/ACT 8GM HFA INHALER INH PRN (08:04)
[2016-11-03] MEDS: SODIUM CHLORIDE NASAL 0.65% SPRAY BTL (OCEAN) PRN (08:05)
[2016-11-03] MEDS: CLOTRIMAZOLE 1% TOPICAL CREAM 30GM TOP PRN (08:05)
[2016-11-03 08:07] VITALS: BP 131/82
[2016-11-03] MEDS: PARoxetine 12.5 MG **CR** TAB PO SCH (08:07)
[2016-11-03] MEDS: MULTIVITAMINS/MINERALS THERAP 1 TAB PO SCH (08:07)
[2016-11-03] MEDS: OLMESARTAN MEDOXOMIL 20 MG TAB (BENICAR) PO SCH (08:07)
[2016-11-03] MEDS: **NOTE PATIENT COMMENT** MISC XX SCH (08:07)
[2016-11-03] MEDS: NICOTINE 21MG/24HR 1 EA TRANSDERMAL TD SCH (08:07)
[2016-11-03] MEDS: FOLIC ACID 1 MG TAB PO SCH (08:07)
[2016-11-03] MEDS: hydrOXYzine 25 MG TAB PO PRN (08:09)
--- NOTE | 2016-11-03 08:55 | DS.PDOC ---
[facility] Discharge Summary Discharge Summary DATE OF ADMISSION: Oct 22, 2016 at 16:45 DATE OF DISCHARGE: November 03, 2016 HISTORY: Patient is a 51-year-old male, who states he presented to the emergency room after consuming alcohol and experiencing suicidal ideation with a plan to drive vehicle into a truck or shoot self. Patient indicates he did not possess intent to harm self because he doesn't want to hurt his family. Patient has had 2 prior psychiatric hospitalizations, last admission occurred in 2010 at which time patient was also treated for alcohol abuse, depression, and suicidal ideation. Patient states he was sober for a year, then gradually began drinking again after daughter left for college, notes he has been drinking fairly regularly for the past year, adds for the past month he has been consuming alcohol excessively with increased use over the past week. Patient indicates he has been experiencing the following stressors: Recently receiving second DUI, has been suspended from his job without pay, financial strain, fear of losing house, car, and other possessions. Patient notes over the past week he began experiencing an increase in the following symptoms: Suicidal ideation, depression, anxiety, alcohol abuse, erratic appetite, helplessness and hopelessness, decreased concentration, erratic sleep. Patient rates current anxiety level of 7/10, depression 7/10, denies current suicidal or homicidal ideation, denies audiovisual hallucinations, denies urge to engage in self-injurious behavior. Patient denies history of attempting suicide and notes, "my thoughts were scaring me because I don't want to leave my family." Patient denies history of discomfort in social settings, denies panic attacks but endorses periods of anxiety with racing thoughts, denies impulse control or compulsive behavior challenges, denies history of agitation or unsanctioned aggression. Patient denies symptoms of reexperiencing and avoidance, and endorses hypervigilance. Patient denies history of hypomania or teresa symptoms, described appetite as reduced but states he is gained weight over the course past year. Patient reports history of sleep challenges including both latency and maintenance, indicates he sleeps approximately 4-5 hours per night and has been prescribed Ambien for over a year by an outpatient provider which she takes nightly. I stop completed which indicated patient should have a 2 week supply of Ambien left When specifications writer inquires, patient indicates he has been taking more than prescribed and combining Ambien with alcohol. Patient denies symptoms of craving or withdrawal. Patient informs specifications writer that he has a court date today related to his second DWI, states he has contacted his office assistant to let the court know he is in the hospital. 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 PSYCHIATRIC REVIEW OF SYSTEMS AT TIME OF ADMISSION: Affective: Cooperative, generally pleasant, anxious related to court, potential loss of employment, financial strain Anxiety: Endorses Trauma: Denies Psychosis: Denies Personally: Is engageable, appears generally forthright, cooperative PAST PSYCHIATRIC HISTORY: Prior Psychiatric Disorder: Depression, anxiety, alcohol abuse Outpatient Treatment: [facility] 2010 Suicidal/Self injurious: History of ideation, denies history of suicide attempt , denies SIB Psychotropic Medication History: Serax, trazodone, Vistaril, Librium, Ativan, Ambien, Zoloft, Paxil NEW TEST RESULTS: Recent lab results indicate low RBC and AGR, and elevated MCH , MCV, [place] %, Eos %, glucose, AST, and ALT. PA is monitoring. PAST MEDICAL/SURGICAL HISTORY: Hypertension, asthma, hyperlipidemia, some hearing loss. Patient denies history of head injury or seizure. Labs on admission indicated elevated MCH, MCV, AST, ALT, glucose, and alkaline phosphatase, and low BUN and AGR. UDS at time of admission indicated ethyl alcohol elevated at 0.047 10/23/16 EKG SINUS RHYTHM WITH SINUS ARRHYTHMIA 10/26/16 right upper quadrant ultrasound with fatty infiltration 10/28/16 CT abdomen and pelvis - Hepatomegaly and hepatosteatosis without focal hepatic lesion, Colonic diverticula without acute diverticulitis, Mild symmetric and likely chronic perinephric stranding without hydroureteronephrosis or nephrolithiasis, Small fat containing left inguinal hernia. 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 Significant other currently resides with patient Economic: Reports notable financial strain related to being suspended without pay from zoology technical officer job Supports: Feels he has adequate support system Abuse/trauma: Denies SUBSTANCE ABUSE HISTORY: Smokes one pack of cigarettes per day. Patient states he has been consuming 1/2 gallon of vodka per day for past 2 weeks, before that he was consuming 1/2 gallon per week approximately the last year, notes he first began consuming alcohol age 18, last consuming 2 drinks yesterday morning. Patient indicates he attended [facility] in 2010, was sober for a year after treatment, then began consuming alcohol again at progressively increased rates. Patient reports history of marijuana and cocaine use recreationally, denies history of other substance use or abuse. TREATMENT PROGRESS ON UNIT: Has adjusted well to unit, has been visible, engaging appropriately with peers, and has participated well in unit programming. Patient was tapered off of Ambien during his stay, has completed CIWA protocol successfully, was restarted on Paxil to address symptoms of anxiety and depression, is now taking trazodone for sleep, and has effectively utilized hydroxyzine PRN to address symptoms of intermittent heightened anxiety. Patient denies medication side effects and indicates current medication regimen is effective. Patient reports improvement to symptoms of anxiety and depression, indicates he remains concerned about outstanding DWI and possibility of losing job and other resources. Patient denies symptoms of irritability, agitation, impulsivity, and mood lability. Patient denies homicidal ideation, auditory and visual hallucinations, and urged to engage in self-injurious behavior. Patient also denies suicidal ideation and is able to verbalize concrete strategies he feels he has learned during inpatient treatment to mitigate symptoms of suicidal ideation should symptoms reemerge, or should symptoms of anxiety or depression increase and become unmanageable. Patient is requesting discharge today, has indicated he now wants bed to bed transfer for alcohol rehabilitation, and will be transported by sister today to [facility] for inpatient alcohol treatment. Patient verbalizes understanding of and agreement with discharge plan. MENTAL STATUS EXAMINATION ON DISCHARGE: Patient is a 51-year old male, who is alert, cooperative, makes good eye contact , exhibits improved personal hygiene, is dressed in own clothing, ambulates with steady gait, appears stated age, exhibits reduced tremor to hands which he has indicated he has been experiencing for past 4-5 months. Speech: Is normal, of normal rate, rhythm, volume, spontaneous, coherent Language skills are good Thought processes including: Linear, coherent. Thought content: Rational, logical Abstract reasoning, and computation: Appears within normal limits Description of associations: Intact Description of abnormal or psychotic thoughts: Patient denies suicidal or homicidal ideation, denies auditory or visual hallucinations, does not appear to be responding to internal stimuli, does not endorse bizarre or paranoid ideation, does not appear preoccupied with violence or obsessions Judgment: Adequate, continues to improve Insight: Fair, continues to improve Orientation: Oriented x 3. Recent and remote memory: Intact. Attention span and concentration: Good. Language: Normal. Fund of knowledge: Adequate Mood: "I'm still worried about losing everything but I know I'm doing the right thing going to rehab." Patient reports notable reduction to symptoms of anxiety and depression, today states he is experiencing moderate anxiety, mild depression, denies mood lability Affect: Mild constriction, brightens appropriately, expresses humor at times, congruent with mood CONDITION ON DISCHARGE: Stable, no suicidal or homicidal ideation DIAGNOSES ON DISCHARGE: Major depressive disorder, recurrent moderate, alcohol use disorder, polysubstance use disorder, adjustment disorder, rule out substance-induced mood disorder MEDICATIONS ON DISCHARGE: See below PLAN/FOLLOWUP ARRANGEMENTS: Continue trazodone 200 mg po hs PRN insomnia, Paxil CR to 37.5 mg po q am, and hydroxyzine 25 mg to QID PRN Patient to transfer today to [facility] and to be transported by sister Patient to follow-up with [facility] PCM within 5-7 days of discharge TIME SPENT COORDINATING CARE: 25 minutes Vital Signs/I&Os Vital Signs Date Time Temp Pulse Resp B/P (MAP) Pulse Ox O2 Delivery O2 Flow Rate FiO2 11/03/16 08:07 131/82 11/03/16 06:26 97.2 107 18 11/01/16 12:30 94 Room Air Laboratory Data Microbiology Microbiology 10/28/16 Urine Culture - Final, Complete Medications Scheduled Olmesartan Medoxomil (Olmesartan Medoxomil) 20 Mg Tab, 20 MG PO DAILY, (Reported ) Paroxetine (Paroxetine HCl ER) 12.5 Mg Tab, 37.5 MG PO DAILY for DEPRESSION for 1 Days, #1 Scheduled PRN Albuterol Sulfate (Ventolin Hfa) 200 Puff/8 Gm Aers, 2 PUFF INH Q4H PRN for SHORTNESS OF BREATH, (Reported) Hydroxyzine HCl (Hydroxyzine HCl) 25 Mg Tab, 25 MG PO QIDP PRN for ANXIETY for 1 Days, #1 Trazodone HCl (Trazodone HCl) 100 Mg Tab, 200 MG PO QHSP PRN for INSOMNIA for 1 Days, #1 Allergies Coded Allergies: No Known Drug Allergy (Verified Allergy, Unknown, 10/07/12) Jocelynn Centeno November 03, 2016 08:55
== END 2016-11-03 10:00 | disposition home or self-care (01) | DRG 751 ==
LOC: M ED 16:22 → M ED INP 16:45 → M PSY 18:09
PROVIDERS: ADMIT Psychiatry & Neurology Psychiatry; ATTEND Psychiatry & Neurology Psychiatry
DX: F33.1 Major depressive disorder, recurrent, moderate (principal); I10 Essential (primary) hypertension; F10.10 Alcohol abuse, uncomplicated; F19.94 Other psychoactive substance use, unspecified with psychoactive substance-induced mood disorder; F43.20 Adjustment disorder, unspecified; G47.00 Insomnia, unspecified; E78.5 Hyperlipidemia, unspecified; F17.210 Nicotine dependence, cigarettes, uncomplicated; Z79.899 Other long term (current) drug therapy; Z59.8 Other problems related to housing and economic circumstances; Z56.4 Discord with boss and workmates